=== PATIENT | female | born 1985 | race Caucasian/White ===

== ENCOUNTER 2018-05-14 00:15 | Emergency (ER) | payer OTHER ==
[2018-05-14] MEDS ORDERED: SODIUM CHLORIDE 0.9% 1,000 ML IV STA (01:12)
[2018-05-14] MEDS ORDERED: METOCLOPRAMIDE 5 MG/ML 2 ML VIAL IVP STA (01:12)
[2018-05-14] MEDS ORDERED: diphenhydrAMINE 50 MG/ML 1 ML VIAL IVP STA (01:12)
[2018-05-14] MEDS ORDERED: DEXTROSE 5% IN WATER 1,000 ML IV SCH (01:15)
[2018-05-14 01:28] LABS: Basophils % (A) 0 %; Eosinophils # (A) 0.1 k/uL (0-0.7); Eosinophils % (A) 1 %; HCT 41.6 % (34.0-46.0); HGB 14.2 gm/dL (11.4-16.0); Lymphocytes # (A) 0.9 k/uL (1.0-4.8); Lymphocytes % (A) 11 %; MCH 31.6 pg (25.0-35.0); MCHC 34.2 g/dL (31.0-37.0); MCV 92.3 fL (80.0-100.0); Mean Platelet Volume 7.4; Monocytes # (A) 0.5 k/uL (0-1.0); Monocytes % (A) 6 %; Neutrophils # (A) 7.1 k/uL (1.3-7.7); Neutrophils % (A) 82 %; Platelet Count 192 k/uL (150-450); RBC 4.51 m/uL (3.80-5.40); RDW 13.7 % (11.5-15.5); WBC 8.6 k/uL (3.8-10.6)
[2018-05-14 01:38] LABS: ALT 24 U/L (9-52); AST 25 U/L (14-36); Albumin 4.4 g/dL (3.5-5.0); Alkaline Phosphatase 71 U/L (38-126); Amylase 68 U/L (30-110); Anion Gap 12 mmol/L; Blood Urea Nitrogen 7 mg/dL (7-17); Calcium 9.2 mg/dL (8.4-10.2); Carbon Dioxide 19 mmol/L (22-30); Chloride 106 mmol/L (98-107); Glucose 86 mg/dL (74-99); Lipase 122 U/L (23-300); Potassium 3.8 mmol/L (3.5-5.1); Sodium 137 mmol/L (137-145); Total Bilirubin 0.9 mg/dL (0.2-1.3)
[2018-05-14 01:53] LABS: Appearance,Urine Cloudy (Clear); Bacteria,Urine Moderate /hpf; Bilirubin,Urine Negative (Negative); Blood,Urine Negative (Negative); Color,Urine Yellow; Glucose,Urine (UA) Negative (Negative); Ketones,Urine 4+ (Negative); Leukocyte Esterase,Urine Large (Negative); Mucus,Urine Few /hpf; Nitrite,Urine Negative (Negative); PH, Urine 6.5 (5.0-8.0); Protein,Urine 1+ (Negative); RBC,Urine 2 /hpf (0-5); Specific Gravity,Urine 1.026 (1.001-1.035); Squamous Epithelial Cell,Urine 19 /hpf (0-4); WBC,Urine 35 /hpf (0-5)
[2018-05-14] MEDS ORDERED: CEPHALEXIN 500MG STARTER PACK 4 CAP BTL PO STA (02:44)
[2018-05-14 02:49] VITALS: TEMP 98.5
--- NOTE | 2018-05-14 03:03 | ED ---
General Adult HPI - General Chief complaint: Nausea/Vomiting/Diarrhea Stated complaint: Vomiting, 24 weeks Time Seen by Provider: 05/14/18 00:51 Source: patient Mode of arrival: ambulatory Limitations: no limitations - History of Present Illness Initial comments: 32-year-old female patient who is approximately 24 weeks presents to the emergency department today for evaluation of vomiting and diarrhea. Patient states she has had symptoms for the last 24 hours after arriving home from a vacation in [place]. Patient states that she has had multiple episodes of vomiting and diarrhea. Patient states she is unable to keep down any food or fluid. Patient states she is starting to feel weak and dizzy from this and is reporting mild headache. She denies any fevers or chills. Denies any abdominal pain or cramping. Denies any abnormal vaginal bleeding or discharge. Patient says she has been feeling normal movement. She denies any hematemesis, hematochezia, or melena. Denies any recent antibiotic use. States that her daughter was sick with similar symptoms. Patient denies any recent rash, shortness breath, chest pain, back pain, numbness, tingling, hematuria, dysuria, urinary urgency, urinary frequency, visual changes, or any other complaints. - Related Data Previous Rx's Medication Instructions Recorded Cephalexin [Keflex] 500 mg PO Q6H #20 cap 05/14/18 Allergies Allergy/AdvReac Type Severity Reaction Status Date / Time No Known Allergies Allergy Verified 05/14/18 00:26 Review of Systems ROS Statement: Those systems with pertinent positive or pertinent negative responses have been documented in the HPI. ROS Other: All systems not noted in ROS Statement are negative. Past Medical History Past Medical History: No Reported History History of Any Multi-Drug Resistant Organisms: None Reported Past Surgical History: No Surgical Hx Reported Past Psychological History: No Psychological Hx Reported Smoking Status: Never smoker Past Alcohol Use History: None Reported Past Drug Use History: None Reported General Exam Limitations: no limitations General appearance: alert, in no apparent distress, other (This is a well- developed, well-nourished adult female patient in no acute distress. Vital signs upon presentation are temperature 98.2F, pulse 81, respirations 16, blood pressure 103/67, pulse ox 99% on room air.) Eye exam: Present: normal appearance, PERRL, EOMI. Absent: scleral icterus, conjunctival injection, periorbital swelling ENT exam: Present: normal exam, normal oropharynx, mucous membranes moist Respiratory exam: Present: normal lung sounds bilaterally. Absent: respiratory distress, wheezes, rales, rhonchi, stridor Cardiovascular Exam: Present: regular rate, normal rhythm, normal heart sounds. Absent: systolic murmur, diastolic murmur, rubs, gallop, clicks GI/Abdominal exam: Present: soft, normal bowel sounds, other (Gravid abdomen). Absent: distended, tenderness, guarding, rebound, rigid Back exam: Absent: CVA tenderness (R), CVA tenderness (L) Neurological exam: Present: alert, oriented X3, CN II-XII intact Psychiatric exam: Present: normal affect, normal mood Skin exam: Present: warm, dry, intact, normal color. Absent: rash Course Vital Signs 05/14/18 05/14/18 05/14/18 00:23 02:48 03:32 Temperature 98.2 F 98.5 F Pulse Rate 81 78 99 Respiratory 16 18 17 Rate Blood Pressure 103/67 112/58 110/58 O2 Sat by Pulse 99 99 100 Oximetry Medical Decision Making - Medical Decision Making 32-year-old female patient who is 24 weeks presents to the emergency department today for evaluation of vomiting and diarrhea. Physical examination is relatively unremarkable, she has no abdominal tenderness. She is reporting no abdominal pain or cramping. heart tones were 135-150. Patient is reporting movement. Labs reviewed and are unremarkable. Urinalysis did show cloudy appearance with 1+ protein, 4+ ketones, large leukocyte esterase, 35 white blood cells, 19 squamous epithelial cells, moderate bacteria and few mucus. We did send this for culture however given her we will treat with Keflex. Patient was given IV fluids including normal saline and D5W, she does report feeling much better after infusion of fluids and nausea medication. She'll be discharged home at this time to follow-up with her [facility] for recheck as soon as possible. She is instructed to start with clear liquid diet and advance as tolerated. Return parameters are discussed in detail. She verbalizes understanding and agrees with this plan. - Lab Data Result diagrams: 05/14/18 00:55 05/14/18 00:55 Lab Results 12/18/18 12/18/18 12/18/18 Range/Units 00:55 00:55 00:55 WBC 8.6 (3.8-10.6) k/uL RBC 4.51 (3.80-5.40) m/uL Hgb 14.2 (11.4-16.0) gm/dL Hct 41.6 (34.0-46.0) % MCV 92.3 (80.0-100.0) fL MCH 31.6 (25.0-35.0) pg MCHC 34.2 (31.0-37.0) g/dL RDW 13.7 (11.5-15.5) % Plt Count 192 (150-450) k/uL Neutrophils % 82 % Lymphocytes % 11 % Monocytes % 6 % Eosinophils % 1 % Basophils % 0 % Neutrophils # 7.1 (1.3-7.7) k/uL Lymphocytes # 0.9 L (1.0-4.8) k/uL Monocytes # 0.5 (0-1.0) k/uL Eosinophils # 0.1 (0-0.7) k/uL Basophils # 0.0 (0-0.2) k/uL Sodium 137 (137-145) mmol/L Potassium 3.8 (3.5-5.1) mmol/L Chloride 106 (98-107) mmol/L Carbon Dioxide 19 L (22-30) mmol/L Anion Gap 12 mmol/L BUN 7 (7-17) mg/dL Creatinine 0.55 (0.52-1.04) mg/dL Est GFR (CKD-EPI)AfAm >90 (>60 ml/min/1.73 sqM) Est GFR (CKD-EPI)NonAf >90 (>60 ml/min/1.73 sqM) Glucose 86 (74-99) mg/dL Calcium 9.2 (8.4-10.2) mg/dL Total Bilirubin 0.9 (0.2-1.3) mg/dL AST 25 (14-36) U/L ALT 24 (9-52) U/L Alkaline Phosphatase 71 (38-126) U/L Total Protein 8.0 (6.3-8.2) g/dL Albumin 4.4 (3.5-5.0) g/dL Amylase 68 (30-110) U/L Lipase 122 (23-300) U/L Urine Color Yellow Urine Appearance Cloudy H (Clear) Urine pH 6.5 (5.0-8.0) Ur Specific [place] 1.026 (1.001-1.035) Urine Protein 1+ H (Negative) Urine Glucose (UA) Negative (Negative) Urine Ketones 4+ H (Negative) Urine Blood Negative (Negative) Urine Nitrite Negative (Negative) Urine Bilirubin Negative (Negative) Urine Urobilinogen 4.0 (<2.0) mg/dL Ur Leukocyte Esterase Large H (Negative) Urine RBC 2 (0-5) /hpf Urine WBC 35 H (0-5) /hpf Ur Squamous Epith Cells 19 H (0-4) /hpf Urine Bacteria Moderate H (None) /hpf Urine Mucus Few H (None) /hpf Disposition Clinical Impression: Gastroenteritis Disposition: HOME SELF-CARE Condition: Good Instructions: Gastroenteritis (ED) Additional Instructions: Increase fluids. Start with clear liquid diet and advance as tolerated. Follow -up with your [facility] in your primary care physician for recheck as soon as possible. Return immediately for any new, worsening, or concerning symptoms. Prescriptions: Cephalexin [Keflex] 500 mg PO Q6H #20 cap Is patient prescribed a controlled substance at d/c from ED?: No Referrals: None,Stated [Primary Care Provider] - 1-2 days
[2018-05-14 03:33] VITALS: BP 110/58; PULSE 99; RESP 17
== END 2018-05-14 03:40 | disposition home or self-care (01) ==
LOC: MERGE 00:15 → EC 00:15
DX: O99.612 Diseases of the digestive system complicating pregnancy, second trimester (principal); O99.89 Other specified diseases and conditions complicating pregnancy, childbirth and the puerperium; K52.9 Noninfective gastroenteritis and colitis, unspecified; R51 Headache; R42 Dizziness and giddiness; Z3A.24 24 weeks gestation of pregnancy
CPT/HCPCS: 36415; 80053; 82150; 83690; 85025; 81001; 87086; 99284; 96374; 96375; 96361 ×2; J1200; J2765

== ENCOUNTER 2018-08-09 10:07 | Inpatient (IN) | payer MEDICAID, OTHER ==
[2018-08-09] MEDS ORDERED: TERBUTALINE 1 MG/ML VIAL SQ PRN (11:38)
[2018-08-09] MEDS ORDERED: ceFAZolin IN SWFI 2 GM/20 ML SYRINGE IVP ONE (13:44)
[2018-08-09] MEDS ORDERED: CITRIC ACID-SODIUM CITRATE 15 ML CUP PO ONE (13:44)
--- NOTE | 2018-08-09 13:56 | P.HPOB ---
History of Present Illness H&P Date: 08/09/18 Chief Complaint: IUP 36 3/7 weeks, labor h/o VAVD desires LTCS This is a 33 yo at 36 3/7 weeks that presents with regular string contractions, she was intially checked and 2cm, and progressed to 4 with a BBOW. she desires LTCS given she had a VAVD, 3rd degree laceration. she had an extensive recovery period due to this. she has been receiving routine PNC with myself since the first trimester. blood work, blood type of B pos, rubella immune, RPR NR, HBSag neg, HIV neg, normal GTT, Tdap given 07/05/18, GBS neg. Review of Systems Constitutional: Denies chills, Denies fatigue, Denies fever Ears, nose, mouth and throat: Denies headache Cardiovascular: Reports leg edema Respiratory: Denies cough, Denies dyspnea Gastrointestinal: Denies constipation, Denies diarrhea, Denies nausea, Denies vomiting Genitourinary: Reports Past Medical History Past Medical History: No Reported History History of Any Multi-Drug Resistant Organisms: None Reported Past Surgical History: No Surgical Hx Reported Smoking Status: Never smoker Medications and Allergies Home Medications Medication Instructions Recorded Confirmed Type Cephalexin [Keflex] 500 mg PO Q6H #20 cap 05/14/18 Rx Allergies Allergy/AdvReac Type Severity Reaction Status Date / Time No Known Allergies Allergy Verified 05/15/18 11:47 Exam Osteopathic Statement: *. No significant issues noted on an osteopathic structural exam other than those noted in the History and Physical/Consult. Intake and Output 08/08/18 08/09/18 08/09/18 22:59 06:59 14:59 Other: Weight 66.678 kg targeted physical exam done in general this pt is a well nourished well developed female in NAD, breathing is noted to be non labored, heart has a regular rhythm, abdomen is gravid and appropriate for GA, FHTS are reactive cat 1, ctx, q 2 mins, SVE 4/70/-2 BBOW Assessment and Plan (1) 36 weeks gestation of Current Visit: Yes Status: Acute Code(s): Z3A.36 - 36 WEEKS GESTATION OF SNOMED Code(s): 98064926 (2) Active labor Current Visit: Yes Status: Acute Code(s): [id number] - SNOMED Code(s): 50721212 (3) H/O delivery by vacuum extraction, currently Current Visit: Yes Status: Acute Code(s): O09.299 - SUPRVSN OF PREG W POOR REPRODCTV OR OBSTET HISTORY, UNSP TRI SNOMED Code(s): 183365824 (4) History of maternal third degree perineal laceration, currently Current Visit: Yes Status: Acute Code(s): O09.299 - SUPRVSN OF PREG W POOR REPRODCTV OR OBSTET HISTORY, UNS TRI SNOMED Code(s): 932490393 Plan: Patient desires LTCS given her last VAVD, with 3 degree perineal laceration. surgery reviewed with pt and . surgery reviewed with pt, and all questions answered. will proceed.
[2018-08-09] MEDS ORDERED: IBUPROFEN IV 800 MG in SODIUM CHLORIDE 0.9% 250 ML IV ONE (13:59)
[2018-08-09] MEDS ORDERED: DEXAMETHASONE SOD PHOS (MDV) 100 MG/10 ML VIAL ONE (14:16)
[2018-08-09] MEDS ORDERED: ONDANSETRON 4 MG/2 ML VIAL ONE (14:16)
[2018-08-09] MEDS ORDERED: NALBUPHINE 10 MG/ML (1 ML AMP) ONE (14:16)
[2018-08-09] MEDS ORDERED: PHENYLEPHRINE-0.9% NACL SYG 1 MG/10 ML SYRINGE ONE (14:16)
[2018-08-09] MEDS ORDERED: OXYTOCIN 10 UNIT/ML 1 ML VIAL ONE (14:16)
[2018-08-09] MEDS ORDERED: MORPHINE SULFATE (PF) 0.3 MG/0.3 ML SYR ONE (14:16)
[2018-08-09 14:22] LABS: Basophils % (A) 0 %; Eosinophils % (A) 0 %; HCT 40.5 % (34.0-46.0); HGB 13.1 gm/dL (11.4-16.0); Lymphocytes # (A) 1.9 k/uL (1.0-4.8); Lymphocytes % (A) 17 %; MCH 28.8 pg (25.0-35.0); MCHC 32.4 g/dL (31.0-37.0); Mean Platelet Volume 7.9; Monocytes # (A) 0.5 k/uL (0-1.0); Monocytes % (A) 4 %; Neutrophils % (A) 77 %; Platelet Count 218 k/uL (150-450); RBC 4.55 m/uL (3.80-5.40); RDW 12.9 % (11.5-15.5); WBC 11.6 k/uL (3.8-10.6)
[2018-08-09] MEDS ORDERED: diphenhydrAMINE 50 MG/ML 1 ML VIAL IVP PRN ×3 (14:41→14:51)
[2018-08-09] MEDS ORDERED: MORPHINE SULFATE 2 MG/ML SYRINGE IVP PRN (14:41)
[2018-08-09] MEDS ORDERED: ONDANSETRON 4 MG/2 ML VIAL IVP PRN ×2 (14:41→14:51)
[2018-08-09] MEDS ORDERED: NALOXONE 0.4 MG/ML 1 ML VIAL IV PRN ×2 (14:41→14:51)
[2018-08-09] MEDS ORDERED: METOCLOPRAMIDE 5 MG/ML 2 ML VIAL IVP PRN (14:51)
[2018-08-09] MEDS ORDERED: diphenhydrAMINE 50 MG CAP PO PRN (14:51)
[2018-08-09] MEDS ORDERED: ZOLPIDEM 5 MG TAB PO PRN (14:51)
[2018-08-09] MEDS ORDERED: OXYTOCIN 20 UNITS/1000 ML NS 1,000 ML IV SCH (14:51)
[2018-08-09 14:58] VITALS: BMI 24.4
--- NOTE | 2018-08-09 15:03 | P.OP ---
Date of Procedure: 08/09/18 Preoperative Diagnosis: IUP @ 36 3/7 weeks, h/o VAVD and 3rd degree laceration desires LTCS Postoperative Diagnosis: same Procedure(s) Performed: primary LTCS Anesthesia: spinal Surgeon: Chrystal Adams Strand Forming Machine Operator #1: Samina Rockwell Estimated Blood Loss (ml): 650 IV fluids (ml): 1,000 Urine output (ml): 25 Pathology: other (placenta) Condition: stable Disposition: PACU Indications for Procedure: h/o VAVD, 3rd degree laceration. Operative Findings: Normal uterus tubes and ovaries, weight 7 lbs. 9 oz. with Apgars of 9 and 9 at one and 5 minutes respectively and a time of 1437 Description of Procedure: The patient was prepped and draped in the usual fashion after spinal anesthesia was administered by anesthesia. A Pfannenstiel incision was made and extended of the abdominal cavity without difficulty. The bladder peritoneum was elevated and incised and reflected distally. A 2 cm incision was made in the transverse plane of the lower uterine segment to enter the uterus at which time clear fluid was noted. The incision was extended in both directions bluntly. The head was encountered within the field and delivered up and through the incision where the nose and mouth were thoroughly suctioned. Remainder of the was delivered onto the surgical field where the cord was doubly clamped, cut, and the was passed for resuscitative measures with weight and Apgars as noted above. A segment of cord was then doubly clamped, cut, and set aside should cord gases become necessary. The placenta was delivered manually, intact, and was grossly normal with a grossly normal three-vessel cord. The uterus was exteriorized and the interior cavity of the uterus swept of any remaining placental and membranous fragments with a laparotomy sponge. The margins of the incision were grasped with Allis clamps and the incision closed in 2 layers. First layer was a running locking layer of 0 vicryl from margin to margin followed by a second layer of imbricating 0 vicryl from margin to margin. Any small points of bleeding were then made hemostatic with the Bovie. Once hemostasis was achieved, the posterior cul-de-sac was suctioned with a guard and the uterine and ovarian findings are as noted above. The uterus was replaced within the abdominal cavity and the gutters swept of any remaining blood fluid or clot. The incision was again reexamined and hemostasis was noted to be excellent. Any small point of bleeding were made hemostatic with the Bovie. Once hemostasis was achieved the parietal peritoneum was loosely reapproximated. The layer of muscles were examined and made hemostatic with the Bovie. Attention was then turned to the fascia which was closed with 2 running stitches of 0 Vicryl proceeding from the lateral margins to the midpoint. The subcutaneous tissues were irrigated, made hemostatic with the Bovie. The skin was reapproximated with 4-0. Estimated blood loss for the case was approximately 650 mL. All sponge instrument and needle counts are correct. There were no complications. The patient tolerated the procedure well and proceeded to the recovery room in stable condition. Both mother and infant are resting comfortably in recovery.
[2018-08-09] MEDS ORDERED: ACETAMINOPHEN IV (For NPO) 1,000 MG in EMPTY BAG 1 BAG IVPB ONE (15:30)
[2018-08-09] MEDS: LACTATED RINGERS 1,000 ML IV SCH ×2 (20:34→22:54)
[2018-08-09] MEDS: SENNOSIDES-DOCUSATE SODIUM 1 EACH TAB PO SCH (20:35)
[2018-08-10] MEDS: diphenhydrAMINE 25 MG CAP PO PRN ×3 (00:32→08:20)
[2018-08-10] MEDS: IBUPROFEN 600 MG TAB PO PRN ×4 (05:13→22:42)
[2018-08-10 06:46] LABS: Basophils % (A) 0 %; Eosinophils % (A) 0 %; HGB 10.8 gm/dL (11.4-16.0); Lymphocytes # (A) 2.3 k/uL (1.0-4.8); Lymphocytes % (A) 16 %; MCH 29.3 pg (25.0-35.0); MCHC 32.6 g/dL (31.0-37.0); MCV 89.8 fL (80.0-100.0); Mean Platelet Volume 9.2; Monocytes # (A) 0.8 k/uL (0-1.0); Monocytes % (A) 6 %; Neutrophils % (A) 76 %; Platelet Count 170 k/uL (150-450); RBC 3.68 m/uL (3.80-5.40); RDW 12.8 % (11.5-15.5); WBC 14.5 k/uL (3.8-10.6)
[2018-08-10] MEDS: ACETAMINOPHEN TAB 325 MG TAB PO PRN ×2 (08:02→12:30)
[2018-08-10] MEDS: SENNOSIDES-DOCUSATE SODIUM 1 EACH TAB PO SCH ×2 (08:02→19:35)
[2018-08-10 09:08] VITALS: RESP 14
--- NOTE | 2018-08-10 09:16 | P.PN ---
Progress Note - Text Progress Note Date: 08/10/18 33 yo female status post . Post-op day #1. Patient received intrathecal Duramorph. Patient was seen today, sitting up in bed no complaints, pain VAS score 0/10, no headache, mild itching responding well to Benadryl, no nausea and vomiting. Assessment and plan: Doing well in general no complications from anesthesia.
--- NOTE | 2018-08-10 11:36 | P.PNOBGPC ---
Subjective - Subjective Principal diagnosis: Postop day 1 Interval history: Patient tearful and upset this morning regarding circumcision. Please see pediatric operative note. Patient reports: Reports appetite normal, Reports voiding normally, Reports pain well controlled, Reports ambulating normally, Denies nauseated : doing well, nursing well Objective - Vital Signs Latest vital signs: Vital Signs Temp Pulse Resp BP Pulse Ox 08/10/18 08:00 97.3 F L 64 14 104/68 08/10/18 05:14 16 08/10/18 04:00 98.1 F 77 14 102/63 99 08/10/18 01:33 16 08/09/18 23:32 97.4 F L 68 14 119/70 99 08/09/18 22:00 16 08/09/18 20:00 98.6 F 62 16 122/79 99 08/09/18 17:47 97 08/09/18 17:41 16 08/09/18 17:40 97.9 F 79 16 100/50 08/09/18 17:10 97.4 F L 74 16 101/58 08/09/18 16:40 97.2 F L 61 16 113/64 08/09/18 16:25 65 16 101/59 08/09/18 16:10 98.1 F 58 L 16 103/56 08/09/18 16:00 65 16 102/55 08/09/18 15:55 81 16 107/59 08/09/18 15:41 97.3 F L 78 16 99/54 99 08/09/18 15:40 98.7 F 89 16 123/52 08/09/18 14:41 16 98 08/09/18 14:07 98.3 F 89 16 123/62 Intake and Output 08/09/18 08/10/18 08/10/18 22:59 06:59 14:59 Intake Total 250 Output Total 1400 500 Balance -1150 -500 Intake: Oral 250 Output: Urine 1400 500 Uretheral ([place]) 1400 Other: # Voids 1 2 - Exam Extremities: Present: normal. Absent: edema Abdomen: Present: normal appearance, soft. Absent: tenderness Incision: Present: normal, dry, intact. Absent: erythematous, edematous Uterus: Present: normal, firm. Absent: tenderness - Labs Labs: Abnormal Lab Results - Last 24 Hours (Table) 08/09/18 08/10/18 Range/Units 14:00 06:32 WBC 11.6 H 14.5 H (3.8-10.6) k/uL RBC 3.68 L (3.80-5.40) m/uL Hgb 10.8 L (11.4-16.0) gm/dL Hct 33.0 L (34.0-46.0) % Neutrophils # 9.0 H 11.0 H (1.3-7.7) k/uL Assessment and Plan (1) 36 weeks gestation of Current Visit: Yes Status: Acute Code(s): Z3A.36 - 36 WEEKS GESTATION OF SNOMED Code(s): 42014834 (2) Active labor Current Visit: Yes Status: Acute Code(s): [id number] - SNOMED Code(s): 20781084 (3) H/O delivery by vacuum extraction, currently Current Visit: Yes Status: Acute Code(s): O09.299 - SUPRVSN OF PREG W POOR REPRODCTV OR OBSTET HISTORY, UNSP TRI SNOMED Code(s): 067339200 (4) History of maternal third degree perineal laceration, currently Current Visit: Yes Status: Acute Code(s): O09.299 - SUPRVSN OF PREG W POOR REPRODCTV OR OBSTET HISTORY, UNSP TRI SNOMED Code(s): 220446720 (5) S/P section Current Visit: Yes Status: Acute Code(s): Z98.891 - HISTORY OF UTERINE SCAR FROM PREVIOUS SURGERY SNOMED Code(s): 028245204 Plan: Postop day 1 status post primary low transverse section. Recovering well. Routine care.
[2018-08-10] MEDS: HYDROcodone/APAP 5-325MG 1 EACH TAB PO PRN ×2 (19:35→23:35)
[2018-08-11] MEDS: HYDROcodone/APAP 5-325MG 1 EACH TAB PO PRN ×2 (03:26→07:53)
[2018-08-11] MEDS: IBUPROFEN 600 MG TAB PO PRN ×2 (04:55→11:24)
[2018-08-11] MEDS: SENNOSIDES-DOCUSATE SODIUM 1 EACH TAB PO SCH (07:53)
[2018-08-11 09:32] VITALS: BP 136/74; PULSE 83; TEMP 98.5
--- NOTE | 2018-08-11 11:04 | P.DS ---
Providers Date of admission: 08/09/18 13:34 Expected date of discharge: 08/11/18 Attending physician: Chrystal Adams Primary care physician: Stated None - Discharge Diagnosis(es) (1) 36 weeks gestation of Current Visit: Yes Status: Acute (2) Active labor Current Visit: Yes Status: Acute (3) H/O delivery by vacuum extraction, currently Current Visit: Yes Status: Acute (4) History of maternal third degree perineal laceration, currently Current Visit: Yes Status: Acute (5) S/P section Current Visit: Yes Status: Acute Hospital Course: This is a 33-year-old 2 now para 2 woman who was admitted at 36+ weeks gestation for active labor. She had a history of a previous third degree perineal laceration and elected for primary section with this delivery. Please see the history and physical for complete details. Following admission she went to the operating room where she underwent an uncomplicated primary low transverse section. Findings at the time of surgery were significant for a liveborn male infant weighing 7 lbs. 9 oz. with Apgars of 9 at 1 minute and 9 at 5 minutes. Her postoperative course was unremarkable. By postoperative day #1 she was ambulating and voiding without difficulty. Her incision was well healing. She had decreasing lochia and her vital signs were stable. By postoperative day #2 she continued to do well on an was meeting all parameters. She was therefore discharged home with routine instructions for postoperative care and follow-up. Procedures: Primary low transverse section Patient Condition at Discharge: Good Plan - Discharge Summary New Discharge Prescriptions: New Ibuprofen [Motrin] 600 mg PO Q6HR PRN tab PRN Reason: Mild Pain Or Fever >= 100.5 HYDROcodone/APAP 5-325MG [[place] 5-325] 1 each PO Q4HR PRN #20 tab PRN Reason: Pain Sennosides-Docusate Sodium [Senokot-S] 2 each PO BID@0800,2000 tab Discontinued Cephalexin [Keflex] 500 mg PO Q6H #20 cap Discharge Medication List HYDROcodone/APAP 5-325MG [[place] 5-325] 1 each PO Q4HR PRN #20 tab 08/11/18 [Rx] Ibuprofen [Motrin] 600 mg PO Q6HR PRN tab 08/11/18 [Rx] Sennosides-Docusate Sodium [Senokot-S] 2 each PO BID@0800,1999 tab 08/11/18 [Rx] Follow up Appointment(s)/Referral(s): Chrystal Adams DO [Doctor of Osteopathic Medicine] - 2 Weeks Activity/Diet/Wound Care/Special Instructions: Follow-up in 2 weeks after surgery in the office. Call the office with any concerning signs or symptoms including fever greater than 101, severe abdominal pain, heavy vaginal bleeding, signs of wound infection, increased swelling or redness of the lower extremities, signs of depression. No driving for 2 weeks after surgery. No heavy lifting or vigorous activity until reevaluated in the office. No intercourse for 6 weeks after delivery. Discharge Disposition: HOME SELF-CARE
== END 2018-08-11 12:06 | disposition home or self-care (01) | DRG 788 ==
LOC: FBPOP 10:07 → 4FBP 13:34
PROVIDERS: ADMIT Obstetrics & Gynecology Obstetrics; ATTEND Obstetrics & Gynecology Obstetrics
PROC: 10D00Z1 Extraction of Products of Conception, Low, Open Approach (ICD-10-PCS; principal; 2018-08-09 14:22)
DX: O60.14X0 Preterm labor third trimester with preterm delivery third trimester, not applicable or unspecified (principal); O09.293 Supervision of pregnancy with other poor reproductive or obstetric history, third trimester; Z87.59 Personal history of other complications of pregnancy, childbirth and the puerperium; Z37.0 Single live birth; Z3A.36 36 weeks gestation of pregnancy; Z98.891 History of uterine scar from previous surgery
CPT/HCPCS: 59025; 85025; 86850; 86900; 86901

== ENCOUNTER 2020-06-03 10:57 | Outpatient (CLI) | payer MEDICAID ==
[2020-06-03 11:51] LABS: Appearance,Urine Cloudy (Clear); Bacteria,Urine Moderate /hpf; Bilirubin,Urine Negative (Negative); Blood,Urine Negative (Negative); Color,Urine Colorless; Glucose,Urine (UA) Negative (Negative); Ketones,Urine Negative (Negative); Leukocyte Esterase,Urine Negative (Negative); Nitrite,Urine Negative (Negative); Protein,Urine Negative (Negative); RBC,Urine <1 /hpf (0-5); Specific Gravity,Urine 1.003 (1.001-1.035); Squamous Epithelial Cell,Urine 14 /hpf (0-4); Urobilinogen,Urine <2.0 mg/dL (<2.0); WBC,Urine 1 /hpf (0-5)
[2020-06-03 13:28] VITALS: BP 135/66; PULSE 100; RESP 18; TEMP 98.3
--- NOTE | 2020-07-23 15:04 | P.MSEPDOC ---
Presenting Problems - Arrival Data Date of Arrival on Unit: 06/03/20 Time of Arrival on Unit: 10:57 Mode of Transport: Ambulatory - Complaint OB-Reason for Admission/Chief Complaint: Pain Comment: pt present to triage for irregular contractions, pressure and tighening Medical History - Information : 3 Para: 2 Term: 1 : 1 Abortions: Spontaneous or Elective: 0 Number of Living Children: 2 - Gestational Age Gestational Age by AXEL (wks/days): 28 Weeks and 2 Days Review of Systems - Review of Systems Constitutional: No problems Breast: No problems ENT: No problems Cardiovascular: No problems Respiratory: No problems Gastrointestinal: No problems Genitourinary: No problems Musculoskeletal: No problems Neurological: No problems Skin: No problems Vital Signs - Temperature Temperature: 98.3 F Temperature Source: Temporal Artery Scan - Pulse Right Brachial Pulse Rate: 100 Pulse Assessment Method: Automatic Cuff - Respirations Respiratory Rate: 18 Oxygen Delivery Method: Room Air O2 Sat by Pulse Oximetry: 98 - Blood Pressure Right Arm Blood Pressure: 135/66 Blood Pressure Mean: 89 Medical Screen Scoring (Pre) - Cervical Exam Dilation: 0 cm = 0 Effacement: Exam Deferred Membranes: Intact - Uterine Contractions Frequency: > 5 minutes apart = 1 Intensity: N/A - Maternal Vital Signs Maternal Temperature: N/A Maternal Blood Pressure: N/A Maternal Respirations: N/A - Maternal Trauma Maternal Trauma: N/A - Assessment - Baby A Baseline FHR: 135 Heart Rate - NICHD Category: Category I (Normal) = 0 NST: Reactive Position: N/A - Total Score - Baby A Total Score - Baby A: 1 - Total Score - Baby B Total Score - Baby B: 1 - Total Score - Baby C Total Score - Baby C: 1 - Level of Risk - Baby A Level of Risk - Baby A: Low (0-5) - Level of Risk - Baby B Level of Risk - Baby B: Low (0-5) - Level of Risk - Baby C Level of Risk - Baby C: Low (0-5) Physician Notification (Pre) - Physician Notified Physician Notified Date: 06/03/20 Physician Notified Time: 12:37 New Order Received: Yes - Notification Comment Comment: UA and FFN were sent, came back negative, cervical exam closed /thick/high, orders to discharge pt home and increase oral fluids, she has next appt on 06-16-20 Disposition - Disposition OB Disposition: Triage, Discharge to home, Written follow up instructions reviewed Discharge Date: 06/03/20 Discharge Time: 12:50 I agree with the RN Medical Screening Exam: Yes Physician's MSE Comment: Patient was not seen or examined by myself Case reviewed; plan agreed upon as documented in EMR&OBIX.: Yes Diagnosis: FALSE LABOR BEFORE 37 COMPLETED WEEKS OF GEST, THIRD TRI
== END 2020-06-03 12:50 | disposition home or self-care (01) ==
LOC: FBPOP 10:57
PROVIDERS: ATTEND Obstetrics & Gynecology Obstetrics
DX: O47.03 False labor before 37 completed weeks of gestation, third trimester (principal); Z3A.28 28 weeks gestation of pregnancy
CPT/HCPCS: 59025; 81001; 82731; 99213

== ENCOUNTER 2020-07-09 10:09 | Outpatient (CLI) | payer MEDICAID, BC ==
[2020-07-09 10:53] VITALS: BP 133/67; PULSE 114; RESP 18; TEMP 96.8
--- NOTE | 2020-07-23 15:36 | P.MSEPDOC ---
Presenting Problems - Arrival Data Date of Arrival on Unit: 07/09/20 Time of Arrival on Unit: 10:09 Mode of Transport: Ambulatory - Complaint OB-Reason for Admission/Chief Complaint: Elevated Blood Pressure Medical History - Information : 4 Para: 2 Term: 1 : 1 Abortions: Spontaneous or Elective: 1 Number of Living Children: 2 - Gestational Age Gestational Age by AXEL (wks/days): 33 Weeks and 3 Days - History Complications: Prior Review of Systems - Review of Systems Constitutional: No problems Breast: No problems ENT: No problems Cardiovascular: No problems Respiratory: No problems Gastrointestinal: No problems Genitourinary: No problems Musculoskeletal: No problems Neurological: No problems Skin: No problems Vital Signs - Temperature Temperature: 96.8 F Temperature Source: Temporal Artery Scan - Pulse Pulse Oximetery Pulse Rate: 114 Pulse Assessment Method: Automatic Cuff - Respirations Respiratory Rate: 18 Oxygen Delivery Method: Room Air O2 Sat by Pulse Oximetry: 100 - Blood Pressure Right Arm Blood Pressure: 133/67 Blood Pressure Mean: 89 Blood Pressure Source: Automatic Cuff Medical Screen Scoring (Pre) - Cervical Exam Dilation: Exam Deferred Effacement: Exam Deferred Membranes: Intact - Uterine Contractions Frequency: N/A Duration: N/A Intensity: N/A - Maternal Vital Signs Maternal Temperature: N/A Maternal Blood Pressure: N/A Maternal Respirations: N/A - Maternal Trauma Maternal Trauma: N/A - Assessment - Baby A Baseline FHR: 145 Heart Rate - NICHD Category: Category I (Normal) = 0 NST: Reactive Position: N/A - Total Score - Baby A Total Score - Baby A: 0 - Total Score - Baby B Total Score - Baby B: 0 - Total Score - Baby C Total Score - Baby C: 0 - Level of Risk - Baby A Level of Risk - Baby A: Low (0-5) - Level of Risk - Baby B Level of Risk - Baby B: Low (0-5) - Level of Risk - Baby C Level of Risk - Baby C: Low (0-5) Physician Notification (Pre) - Physician Notified Physician Notified Date: 07/09/20 Physician Notified Time: 10:34 New Order Received: Yes - Notification Comment Comment: Dr. Edge on unit and at bedside. Discussed POC with pt and s/s of preeclampsia. Orders received to d/c pt home due to blood pressure WNL. Dr. Edge states baseline labs do not need to be drawn at this time. Pt to keep sched follow up appt with Dr. Adams 07/14/20. Disposition - Disposition OB Disposition: Discharge to home Discharge Date: 07/09/20 Discharge Time: 10:45 I agree with the RN Medical Screening Exam: Yes Physician's MSE Comment: Patient was not seen or examined by myself Case reviewed; plan agreed upon as documented in EMR&OBIX.: Yes Diagnosis: OTHER SPECIFIED COMPLICATIONS OF LABOR AND DELIVERY
== END 2020-07-09 10:45 | disposition home or self-care (01) ==
LOC: FBPOP 10:09
PROVIDERS: ATTEND Obstetrics & Gynecology Obstetrics
DX: O75.89 Other specified complications of labor and delivery (principal); Z3A.33 33 weeks gestation of pregnancy
CPT/HCPCS: 59025; 99213

== ENCOUNTER 2020-07-13 14:57 | Outpatient (CLI) | payer MEDICAID, BC ==
[2020-07-13] MEDS ORDERED: BETAMET ACET-BETAMETH SOD PHOS 6 MG/ML MDV IM SCH (15:30)
== END 2020-07-13 15:59 | disposition home or self-care (01) ==
LOC: FBPOP 14:57
PROVIDERS: ATTEND Obstetrics & Gynecology Obstetrics
DX: O60.03 Preterm labor without delivery, third trimester (principal); Z3A.34 34 weeks gestation of pregnancy
CPT/HCPCS: 59025; 96372; J0702; 99214

== ENCOUNTER 2020-07-14 22:40 | Outpatient (CLI) | payer BC ==
[2020-07-14 23:24] VITALS: BP 131/71; PULSE 101; RESP 16; TEMP 97.6
--- NOTE | 2020-07-15 01:10 | P.MSEPDOC ---
Presenting Problems - Arrival Data Date of Arrival on Unit: 07/14/20 Time of Arrival on Unit: 22:40 Mode of Transport: Ambulatory - Complaint OB-Reason for Admission/Chief Complaint: Decreased Movement Medical History - Information : 4 Para: 3 Term: 2 : 1 Abortions: Spontaneous or Elective: 0 Number of Living Children: 3 - Gestational Age Gestational Age by AXEL (wks/days): 34 Weeks and 1 Days Review of Systems - Review of Systems Constitutional: No problems Breast: No problems ENT: No problems Cardiovascular: No problems Respiratory: No problems Gastrointestinal: No problems Genitourinary: No problems Musculoskeletal: No problems Neurological: No problems Skin: No problems Vital Signs - Temperature Temperature: 97.6 F Temperature Source: Oral - Pulse Right Brachial Pulse Rate: 101 Pulse Assessment Method: Automatic Cuff - Respirations Respiratory Rate: 16 Oxygen Delivery Method: Room Air O2 Sat by Pulse Oximetry: 99 - Blood Pressure Right Arm Blood Pressure: 131/71 Blood Pressure Mean: 91 Blood Pressure Source: Automatic Cuff Medical Screen Scoring (Pre) - Cervical Exam Dilation: Exam Deferred Effacement: Exam Deferred Membranes: Intact - Uterine Contractions Frequency: N/A Duration: N/A Intensity: N/A - Maternal Vital Signs Maternal Temperature: N/A Maternal Blood Pressure: N/A Signs of Preeclampsia: N/A Maternal Respirations: N/A - Maternal Trauma Maternal Trauma: N/A - Assessment - Baby A Baseline FHR: 135 Heart Rate - NICHD Category: Category I (Normal) = 0 NST: Reactive Position: N/A Station: N/A - Total Score - Baby A Total Score - Baby A: 0 - Total Score - Baby B Total Score - Baby B: 0 - Total Score - Baby C Total Score - Baby C: 0 - Level of Risk - Baby A Level of Risk - Baby A: Low (0-5) - Level of Risk - Baby B Level of Risk - Baby B: Low (0-5) - Level of Risk - Baby C Level of Risk - Baby C: Low (0-5) Physician Notification (Pre) - Physician Notified Physician Notified Date: 07/14/20 Physician Notified Time: 23:08 New Order Received: Yes - Notification Comment Comment: Dr. Connor given report on pt. Pt c/o. VS WNL. Reactive NST. No contractions. noted per toco or pt. Orders receievd to d/c pt to home. Disposition - Disposition OB Disposition: Physician follow up in office, Discharge to home Discharge Date: 07/14/20 Discharge Time: 23:10 I agree with the RN Medical Screening Exam: Yes Case reviewed; plan agreed upon as documented in EMR&OBIX.: Yes Diagnosis: DECREASED MOVEMENTS, THIRD TRIMESTER, FETUS 1 Additional Diagnoses: Patient was neither seen nor examined by me
== END 2020-07-14 23:10 | disposition home or self-care (01) ==
LOC: FBPOP 22:40
PROVIDERS: ATTEND Obstetrics & Gynecology
DX: O36.8131 Decreased fetal movements, third trimester, fetus 1 (principal); Z3A.34 34 weeks gestation of pregnancy
CPT/HCPCS: 59025; 99213

== ENCOUNTER 2020-07-30 21:02 | Outpatient (CLI) | payer MEDICAID, BC ==
[2020-07-30] MEDS ORDERED: ONDANSETRON 4 MG/2 ML VIAL IVP STA (21:44)
[2020-07-30] MEDS ORDERED: LACTATED RINGERS 1,000 ML IV SCH (21:45)
[2020-07-30] MEDS: DEXTROSE 5%-LACTATED RINGERS 1,000 ML IV SCH ×3 (22:00→23:30)
[2020-07-30 22:02] LABS: Appearance,Urine Cloudy (Clear); Bacteria,Urine Occasional /hpf; Bilirubin,Urine Negative (Negative); Blood,Urine Negative (Negative); Color,Urine Yellow; Glucose,Urine (UA) Negative (Negative); Ketones,Urine 4+ (Negative); Leukocyte Esterase,Urine Small (Negative); Mucus,Urine Many /hpf; Nitrite,Urine Negative (Negative); Protein,Urine 2+ (Negative); RBC,Urine 6 /hpf (0-5); Specific Gravity,Urine 1.027 (1.001-1.035); Squamous Epithelial Cell,Urine 27 /hpf (0-4); WBC,Urine 6 /hpf (0-5)
[2020-07-30 22:55] LABS: Basophils % (A) 0 %; Eosinophils # (A) 0.1 k/uL (0-0.7); Eosinophils % (A) 1 %; HCT 42.5 % (34.0-46.0); HGB 13.8 gm/dL (11.4-16.0); Hypochromasia Slight; Lymphocytes # (A) 0.5 k/uL (1.0-4.8); Lymphocytes % (A) 4 %; MCH 28.7 pg (25.0-35.0); MCHC 32.5 g/dL (31.0-37.0); MCV 88.2 fL (80.0-100.0); Mean Platelet Volume 9.4; Monocytes # (A) 0.5 k/uL (0-1.0); Monocytes % (A) 4 %; Neutrophils # (A) 12.3 k/uL (1.3-7.7); Neutrophils % (A) 91 %; Platelet Count 153 k/uL (150-450); RBC 4.81 m/uL (3.80-5.40); RDW 13.9 % (11.5-15.5); WBC 13.5 k/uL (3.8-10.6)
[2020-07-30] MEDS ORDERED: METOCLOPRAMIDE 5 MG/ML 2 ML VIAL IVP STA (23:19)
[2020-07-30] MEDS: TERBUTALINE 1 MG/ML VIAL SQ STA (23:39)
[2020-07-31] MEDS: TERBUTALINE 1 MG/ML VIAL SQ STA (00:03)
[2020-07-31] MEDS: DEXTROSE 5%-LACTATED RINGERS 1,000 ML IV SCH (01:57)
[2020-07-31 03:47] VITALS: BP 146/67; PULSE 96; RESP 16; TEMP 96.3
--- NOTE | 2020-08-16 11:23 | P.MSEPDOC ---
Presenting Problems - Arrival Data Date of Arrival on Unit: 07/30/20 Time of Arrival on Unit: 21:02 Mode of Transport: Wheelchair - Complaint OB-Reason for Admission/Chief Complaint: Acute Nausea/Vomiting Comment: Comment: pt. present to triage due to N&V and diarrhea since 1800 today and. c/o lower back pain01/04, pt. states her children go to daycare and came home with the. flu on sunday and today. Medical History - Information : 3 Para: 2 Term: 2 : 0 Abortions: Spontaneous or Elective: 0 Number of Living Children: 2 - Gestational Age Gestational Age by AXEL (wks/days): 36 Weeks and 1 Days - History Complications: Prior Review of Systems - Review of Systems Constitutional: No problems Breast: No problems ENT: No problems Cardiovascular: No problems Respiratory: No problems Gastrointestinal: No problems Genitourinary: No problems Musculoskeletal: No problems Neurological: No problems Skin: No problems Vital Signs - Temperature Temperature: 96.3 F Temperature Source: Temporal Artery Scan - Pulse Right Brachial Pulse Rate: 96 Pulse Assessment Method: Automatic Cuff - Respirations Respiratory Rate: 16 Oxygen Delivery Method: Room Air O2 Sat by Pulse Oximetry: 100 - Blood Pressure Right Arm Blood Pressure: 146/67 Blood Pressure Mean: 93 Blood Pressure Source: Automatic Cuff Medical Screen Scoring (Pre) - Cervical Exam Dilation: 1-3 cm = 1 Effacement: More than 50% = 2 Membranes: Intact - Uterine Contractions Frequency: Scheduled / = 6 Intensity: N/A - Maternal Vital Signs Maternal Temperature: N/A Maternal Blood Pressure: Systolic >139 = 2 Signs of Preeclampsia: Nausea/Vomiting = 1 Maternal Respirations: N/A - Maternal Trauma Maternal Trauma: N/A - Assessment - Baby A Baseline FHR: 150 Heart Rate - NICHD Category: Category I (Normal) = 0 NST: Reactive - Total Score - Baby A Total Score - Baby A: 12 - Total Score - Baby B Total Score - Baby B: 12 - Total Score - Baby C Total Score - Baby C: 12 - Level of Risk - Baby A Level of Risk - Baby A: High (10+) - Level of Risk - Baby B Level of Risk - Baby B: High (10+) - Level of Risk - Baby C Level of Risk - Baby C: High (10+) - Pain Assessment Pain Location and Character: Back Pain Scale Used: Numeric (1 - 10) Pain Intensity: 8 Pain Management Goal: 2 Pain Description: *Acute, Cramping Pain Radiation Location: no Pain Frequency: Intermittent Pain Duration: 2 Pain Duration Units: Hours Pain Behavior: Vocalization Physician Notification (Pre) - Physician Notified Physician Notified Date: 07/31/20 Physician Notified Time: 03:28 New Order Received: Yes - Notification Comment Comment: Dr. Connor in to see pt at bedside, pt states feeling better and not as nauseous as when arriving to triage. Dr. Connor discussed bland diet and increase d fluids with pt. Pt to follow up as planned on 08/05/20. Disposition - Disposition OB Disposition: Physician follow up in office, Triage, Discharge to home, Written follow up instructions reviewed Discharge Date: 07/31/20 Discharge Time: 03:33 I agree with the RN Medical Screening Exam: Yes Case reviewed; plan agreed upon as documented in EMR&OBIX.: Yes Comments: patient was neither seen nor examined by me. Diagnosis: LATE VOMITING OF
== END 2020-07-31 03:30 | disposition home or self-care (01) ==
LOC: FBPOP 21:02
PROVIDERS: ATTEND Obstetrics & Gynecology
DX: O21.2 Late vomiting of pregnancy (principal); Z3A.36 36 weeks gestation of pregnancy
CPT/HCPCS: 59025; 99214; 96361; 96374; 96375; 96372; 84112; 85025; 81001; J3105 ×2; J2765; J2405

== ENCOUNTER 2020-08-02 10:58 | Outpatient (CLI) | payer MEDICAID, BC ==
[2020-08-02] MEDS ORDERED: ONDANSETRON 4 MG/2 ML VIAL IVP STA (11:31)
[2020-08-02 12:11] LABS: African American GFR (CKD) >90 (>60 ml/min/1.73 sqM); Anion Gap 6 mmol/L; Blood Urea Nitrogen 6 mg/dL (7-17); Calcium 8.6 mg/dL (8.4-10.2); Carbon Dioxide 23 mmol/L (22-30); Chloride 109 mmol/L (98-107); Glucose 89 mg/dL (74-99); Non-African American GFR(CKD) >90 (>60 ml/min/1.73 sqM); Potassium 3.5 mmol/L (3.5-5.1); Sodium 138 mmol/L (137-145)
[2020-08-02] MEDS: LACTATED RINGERS 1,000 ML IV SCH ×2 (12:15→14:39)
[2020-08-02 12:28] LABS: Amorphous Sediment,Urine Rare /hpf; Appearance,Urine Turbid (Clear); Bacteria,Urine Moderate /hpf; Bilirubin,Urine 1+ (Negative); Blood,Urine Trace (Negative); Calcium Oxalate Crystals,Urine Few /hpf; Color,Urine Yellow; Glucose,Urine (UA) Negative (Negative); Ketones,Urine Negative (Negative); Leukocyte Esterase,Urine Moderate (Negative); Mucus,Urine Many /hpf; Nitrite,Urine Negative (Negative); Protein,Urine 1+ (Negative); RBC,Urine 9 /hpf (0-5); Specific Gravity,Urine 1.024 (1.001-1.035); Squamous Epithelial Cell,Urine 71 /hpf (0-4); Urobilinogen,Urine >12.0 mg/dL (<2.0); WBC,Urine 10 /hpf (0-5)
[2020-08-02 12:36] LABS: SARS-CoV-2 RNA Rapid Abbott Not Detected (Not Detectd)
[2020-08-02 15:39] VITALS: BP 134/71; PULSE 93; RESP 16; TEMP 97
--- NOTE | 2020-09-09 17:29 | P.MSEPDOC ---
Presenting Problems - Arrival Data Date of Arrival on Unit: 08/02/20 Time of Arrival on Unit: 12:00 Mode of Transport: Ambulatory - Complaint OB-Reason for Admission/Chief Complaint: Possible Onset of Labor, Observation/Evaluation, Other Comment: still not feeling well from flu. n/v Medical History - Information : 3 Para: 2 Term: 0 : 2 Number of Living Children: 2 - Gestational Age Gestational Age by AXEL (wks/days): 36 Weeks and 6 Days - History Complications: Prior , Other Comment: flu over weekend Review of Systems - Review of Systems Constitutional: No problems Breast: No problems ENT: No problems Cardiovascular: No problems Respiratory: No problems Gastrointestinal: Diarrhea Genitourinary: No problems Musculoskeletal: No problems Neurological: No problems Skin: No problems Vital Signs - Temperature Temperature: 97.0 F Temperature Source: Temporal Artery Scan - Pulse Right Radial Pulse Rate: 93 Pulse Assessment Method: Automatic Cuff - Respirations Respiratory Rate: 16 Oxygen Delivery Method: Room Air O2 Sat by Pulse Oximetry: 98 - Blood Pressure Right Arm Blood Pressure: 134/71 Blood Pressure Mean: 92 Blood Pressure Source: Automatic Cuff Medical Screen Scoring (Pre) - Cervical Exam Dilation: 1-3 cm = 1 Effacement: Exam Deferred Membranes: Intact - Uterine Contractions Frequency: > or = 36 weeks =2 Duration: N/A Intensity: N/A - Maternal Vital Signs Maternal Temperature: N/A Maternal Blood Pressure: N/A Signs of Preeclampsia: N/A Maternal Respirations: N/A - Maternal Trauma Maternal Trauma: N/A - Assessment - Baby A Baseline FHR: 130 Heart Rate - NICHD Category: Category I (Normal) = 0 NST: Reactive Position: N/A Station: N/A - Total Score - Baby A Total Score - Baby A: 3 - Total Score - Baby B Total Score - Baby B: 3 - Total Score - Baby C Total Score - Baby C: 3 - Level of Risk - Baby A Level of Risk - Baby A: Low (0-5) - Level of Risk - Baby B Level of Risk - Baby B: Low (0-5) - Level of Risk - Baby C Level of Risk - Baby C: Low (0-5) Physician Notification (Pre) - Physician Notified Physician Notified Date: 08/02/20 Physician Notified Time: 12:20 New Order Received: Yes - Notification Comment Comment: iv, lab work. covid and flu texting. monitoring and contx monitoring Disposition - Disposition OB Disposition: Discharge to home Discharge Date: 08/02/20 Discharge Time: 15:00 I agree with the RN Medical Screening Exam: Yes Physician's MSE Comment: Patient was not seen or examined by myself Case reviewed; plan agreed upon as documented in EMR&OBIX.: Yes Diagnosis: FALSE LABOR BEFORE 37 COMPLETED WEEKS OF GEST, THIRD TRI
== END 2020-08-02 15:00 | disposition home or self-care (01) ==
LOC: FBPOP 10:58
PROVIDERS: ATTEND Obstetrics & Gynecology Obstetrics
DX: O47.03 False labor before 37 completed weeks of gestation, third trimester (principal); Z3A.36 36 weeks gestation of pregnancy
CPT/HCPCS: 59025; 80048; 81001; 87502; 87635; 96360; 96361; 99214

== ENCOUNTER 2020-08-04 05:46 | Outpatient (CLI) | payer MEDICAID, BC ==
[2020-08-04 06:37] VITALS: BP 126/79; PULSE 86; RESP 16; TEMP 96.7
== END 2020-08-04 06:27 | disposition home or self-care (01) ==
LOC: FBPOP 05:46
PROVIDERS: ATTEND Obstetrics & Gynecology
DX: O26.893 Other specified pregnancy related conditions, third trimester (principal); Z3A.00 Weeks of gestation of pregnancy not specified
CPT/HCPCS: 59025; 99213

== ENCOUNTER 2020-08-04 06:00 | Inpatient (IN) | payer BC, MEDICAID ==
[2020-08-04] MEDS ORDERED: CITRIC ACID-SODIUM CITRATE 15 ML CUP PO ONE (12:02)
[2020-08-04] MEDS ORDERED: LACTATED RINGERS 1,000 ML IV ONE (12:30)
[2020-08-04 12:53] LABS: Basophils % (A) 0 %; Eosinophils # (A) 0.1 k/uL (0-0.7); Eosinophils % (A) 1 %; HGB 10.9 gm/dL (11.4-16.0); Lymphocytes # (A) 1.9 k/uL (1.0-4.8); Lymphocytes % (A) 30 %; MCH 28.4 pg (25.0-35.0); MCHC 32.8 g/dL (31.0-37.0); MCV 86.5 fL (80.0-100.0); Mean Platelet Volume 9.4; Monocytes # (A) 0.3 k/uL (0-1.0); Monocytes % (A) 4 %; Neutrophils % (A) 62 %; Platelet Count 160 k/uL (150-450); Poikilocytosis Slight; RBC 3.82 m/uL (3.80-5.40); RDW 14.7 % (11.5-15.5); WBC 6.4 k/uL (3.8-10.6)
[2020-08-04] MEDS: LACTATED RINGERS 1,000 ML IV SCH ×3 (13:39→20:43)
[2020-08-04] MEDS ORDERED: MORPHINE SULFATE (PF) 0.3 MG/0.3 ML SYR ONE (16:35)
[2020-08-04] MEDS ORDERED: ONDANSETRON 4 MG/2 ML VIAL ONE (16:35)
[2020-08-04] MEDS ORDERED: KETOROLAC 15 MG/ML 1 ML VIAL ONE (16:35)
[2020-08-04] MEDS ORDERED: OXYTOCIN 10 UNIT/ML 1 ML VIAL ONE (16:35)
[2020-08-04] MEDS ORDERED: CELLULOSE,OXIDIZED 1 EACH EACH MISCELLANE ONE (16:58)
[2020-08-04] MEDS ORDERED: METOCLOPRAMIDE 5 MG/ML 2 ML VIAL IVP PRN (17:24)
[2020-08-04] MEDS ORDERED: ZOLPIDEM 5 MG TAB PO PRN (17:24)
[2020-08-04] MEDS ORDERED: diphenhydrAMINE 50 MG/ML 1 ML VIAL IVP PRN ×2 (17:24)
[2020-08-04] MEDS ORDERED: NALOXONE 0.4 MG/ML 1 ML VIAL IV PRN (17:24)
[2020-08-04] MEDS ORDERED: diphenhydrAMINE 50 MG CAP PO PRN (17:24)
[2020-08-04] MEDS ORDERED: diphenhydrAMINE 25 MG CAP PO PRN (17:24)
[2020-08-04] MEDS ORDERED: ONDANSETRON 4 MG/2 ML VIAL IVP PRN (17:24)
[2020-08-04] MEDS ORDERED: OXYTOCIN 30 UNITS/500 ML NS 30 UNIT in SALINE 1 500ML.BAG IV SCH (17:30)
--- NOTE | 2020-08-04 17:32 | P.HPOB ---
History of Present Illness H&P Date: 08/04/20 Chief Complaint: IUP at 37 1/, labor, history of 1 desires repeat This is a 35-year-old at 37 and one sevenths weeks that presented to triage earlier today with complaints of decreased movement and contractions. Patient was discharged home and presented to the office. Patient was noted to have cervical change therefore was sent back to the hospital for planned repeat section secondary to labor. section will be delayed because she had breakfast this morning. Patient has noted good movement denied loss of fluid or vaginal bleeding. Patient has been receiving routine care which has been complicated by contractions. Patient has been struggling with regular painful contractions for the last 2 weeks with no cervical change. In the office today she was noted to be 2/50 soft anterior she was previously fingertip to 1 thick posterior firm. On bloodwork patient had a blood type of B+, rubella status immune, hep B surface antigen negative, HIV negative, group beta strep is noted to be positive. Patient did receive steroids at 34 weeks secondary to contractions. Review of Systems Constitutional: Denies chills, Denies fatigue, Denies fever Ears, nose, mouth and throat: Denies headache Cardiovascular: Reports leg edema Respiratory: Denies dyspnea Gastrointestinal: Denies nausea, Denies vomiting Genitourinary: Reports Past Medical History Past Medical History: No Reported History History of Any Multi-Drug Resistant Organisms: None Reported Past Surgical History: Section, Tonsillectomy Past Anesthesia/Blood Transfusion Reactions: No Reported Reaction Past Psychological History: No Psychological Hx Reported Smoking Status: Never smoker Past Alcohol Use History: None Reported Past Drug Use History: None Reported - Past Family History Father Family Medical History: No Reported History Mother History Unknown: Yes Additional Family Medical History / Comment(s): mom from [facility] in Jan Medications and Allergies Home Medications Medication Instructions Recorded Confirmed Type Pnv No.95/Ferrous Fum/Folic AC 1 each PO DAILY 06/03/20 08/04/20 History [ Multivitamin Tablet] Omeprazole [PriLOSEC] 10 mg PO DIRECTED PRN 07/09/20 08/04/20 History Nitrofurantoin Monohyd/M-Cryst 100 mg PO Q12HR 08/04/20 08/04/20 History [Macrobid] Allergies Allergy/AdvReac Type Severity Reaction Status Date / Time No Known Allergies Allergy Verified 08/04/20 11:39 Exam Osteopathic Statement: *. No significant issues noted on an osteopathic structural exam other than those noted in the History and Physical/Consult. Vital Signs Temp Pulse Resp BP Pulse Ox 08/04/20 12:06 97.4 F L 89 18 137/78 99 Intake and Output 08/04/20 08/04/20 08/04/20 06:59 14:59 22:59 Intake Total 1000 Balance 1000 Intake: IV 1000 Other: # Voids 2 Weight 70.76 kg Targeted physical exam is performed in this date in general this is a well- nourished well-developed female with obvious noted contractions. Pa tient is noted to be breathing through contractions. Breathing appears nonlabored, heart has a regular rate and rhythm, abdomen is gravid and firm with contractions. On cervical exam she is 2/50/-2 station heart tones were noted be category 1 and she is fuentes every 2-4 minutes. Results Result Diagrams: 08/04/20 12:18 Abnormal Lab Results - Last 24 Hours (Table) 08/04/20 Range/Units 12:18 Hgb 10.9 L (11.4-16.0) gm/dL Hct 33.0 L (34.0-46.0) % Assessment and Plan (1) 37 weeks gestation of Current Visit: Yes Status: Acute Code(s): Z3A.37 - 37 WEEKS GESTATION OF SNOMED Code(s): 06933403 (2) H/O section Current Visit: Yes Status: Acute Code(s): Z98.891 - HISTORY OF UTERINE SCAR FROM PREVIOUS SURGERY SNOMED Code(s): 375238129 (3) Active labor Current Visit: No Status: Acute Code(s): FGS7382 - SNOMED Code(s): 685597562 (4) H/O delivery by vacuum extraction, currently Current Visit: No Status: Acute Code(s): O09.299 - SUPRVSN OF PREG W POOR REPRODCTV OR OBSTET HISTORY, UNSP TRI SNOMED Code(s): 944217601 Plan: This 35-year-old at 37 and one sevenths weeks presents with complaints of labor. Patient has been fuentes off and on for the last few days. Patient was noted to make cervical change therefore given the fact that she is in most likely early labor decision was made to proceed with repeat section. Patient did eat breakfast and we will await the appropriate time to perform repeat . is discussed with the patient and her all questions are answered and they wished to proceed.
--- NOTE | 2020-08-04 17:36 | P.OP ---
Date of Procedure: 08/04/20 Preoperative Diagnosis: IUP at 37 and 1/sevenths weeks, labor, history of 1 desires repeat Postoperative Diagnosis: Same Procedure(s) Performed: Repeat section Anesthesia: spinal Surgeon: Chrystal Adams Pin Drafter #1: Alexi Edge Estimated Blood Loss (ml): 250 IV fluids (ml): 800 Urine output (ml): 100 Pathology: none sent Condition: stable Disposition: observation Indications for Procedure: Labor with history of 1 and desiring repeat Operative Findings: A thin lower uterine segment was appreciated, viable male infant delivered at 1658, weight of 7 lbs. 8 oz. and Apgars of 8 and 9 at one and 5 minutes respectively. Normal ovaries were appreciated bilaterally. At the end of the procedure Interceed was placed over the hysterotomy incision Description of Procedure: Patient was taken back to the operating suite where spinal anesthesia was found be adequate by the anesthesia department. She was prepped and draped in the normal sterile fashion in the dorsal supine position. A Pfannenstiel skin incision was made with the scalpel and carried through to underlying layer of fascia. The fascia was then incised in the midline and the incision was extended laterally. The superior aspect of the fascial incision was then grasped pancho clamps, elevated and underlying rectus muscle was dissected off sharply. The inferior aspect of the fascial incision was then grasped pancho clamps elevated and underlying rectus muscles dissected off sharply once again. The peritoneum was identified and entered. This incision was then extended superiorly and inferiorly with good visualization the bladder. The bladder blade was then inserted into the pelvis. The vesicouterine peritoneum was identified and a bladder flap was created using sharp and blunt dissection. Hysterotomy incision was then performed thin meconium-stained fluid was noted upon amniotomy. The infant's head was delivered in the usual fashion, the umbilical cord was doubly clamped and cut. The was handed off to awaiting RN. The placenta was then delivered manually and the uterus was cleared of all clots and debris. Uterus then delivered from the abdomen. The hysterotomy incision was closed with 0 Vicryl in a running locked fashion a second imbricating suture was performed. A small amount of bleeding was noted on the left-hand side of the uterus therefore a [id number] suture was used to obtain hemostasis. The pelvis was then irrigated copiously. The uterus was then returned the abdomen. The gutters were cleared of all clots and debris the uterine incision was inspected and found to be hemostatic. Interceed was placed over the hysterotomy incision the peritoneum was then loosely reapproximated. The fascia was then closed with 0 Vicryl in a running fashion from one lateral edge the other. The subcutaneous tissue was then irrigated and found to be hemostatic. The subcutaneous tissue was then closed with 3-0 Vicryl in a running fashion. The skin was then closed with 4-0 Vicryl in a subarticular fashion. Steri-Strips and sterile dressings were applied. Uterus is noted be firm and below the umbilicus. All counts were noted to be correct 2000 the procedure. Patient and infant tolerated delivery well and are resting comfortably.
[2020-08-04] MEDS: ACETAMINOPHEN IV (For NPO) 1,000 MG in EMPTY BAG 1 BAG IVPB SCH (18:22)
[2020-08-04] MEDS ORDERED: IBUPROFEN IV 800 MG in SODIUM CHLORIDE 0.9% 250 ML IV ONE (20:46)
[2020-08-04] MEDS ORDERED: IBUPROFEN 600 MG TAB PO SCH (23:27)
[2020-08-05] MEDS: NITROFURANTOIN MONOHYD/M-CRYST 100 MG CAP PO SCH ×3 (00:24→21:43)
[2020-08-05] MEDS: SENNOSIDES-DOCUSATE SODIUM 1 EACH TAB PO SCH ×3 (00:24→19:58)
[2020-08-05] MEDS: LACTATED RINGERS 1,000 ML IV SCH ×2 (00:26→13:48)
[2020-08-05] MEDS: ACETAMINOPHEN IV (For NPO) 1,000 MG in EMPTY BAG 1 BAG IVPB SCH (01:48)
[2020-08-05 06:39] LABS: Basophils % (A) 0 %; Eosinophils # (A) 0.1 k/uL (0-0.7); Eosinophils % (A) 1 %; HCT 32.6 % (34.0-46.0); Lymphocytes # (A) 1.9 k/uL (1.0-4.8); Lymphocytes % (A) 21 %; MCH 28.9 pg (25.0-35.0); MCHC 33.7 g/dL (31.0-37.0); MCV 85.8 fL (80.0-100.0); Mean Platelet Volume 10.2; Monocytes # (A) 0.5 k/uL (0-1.0); Monocytes % (A) 5 %; Neutrophils # (A) 6.3 k/uL (1.3-7.7); Neutrophils % (A) 71 %; Platelet Count 127 k/uL (150-450); WBC 8.9 k/uL (3.8-10.6)
--- NOTE | 2020-08-05 06:42 | P.PN ---
Progress Note - Text Postoperative day 1 status post section under spinal anesthesia, and intrathecal morphine given for postoperative analgesia, patient doing well, there is no anesthesia related complications Patient had no headache, vital signs stable Assessment and plan = postop day 1 status post , doing well there is no anesthesia related complication
[2020-08-05] MEDS: IBUPROFEN 600 MG TAB PO SCH ×3 (06:52→18:51)
--- NOTE | 2020-08-05 08:43 | P.PNOBGPC ---
Subjective - Subjective Principal diagnosis: Postop day 1 status post repeat Interval history: Patient is feeling well this morning. She did well overnight, she is ambulating and voiding without difficulty. She is tolerating a regular diet this morning she denies discomfort and states she is overall feeling well. Breast-feeding is going well. Patient reports: Reports appetite normal, Reports voiding normally, Reports pain well controlled, Reports ambulating normally : doing well, nursing well Objective - Vital Signs Latest vital signs: Vital Signs Temp Pulse Resp BP Pulse Ox 08/05/20 04:00 98.1 F 71 16 134/87 08/05/20 00:00 97.7 F 68 14 134/82 08/04/20 19:28 96.8 F L 66 16 123/76 99 08/04/20 18:58 97.2 F L 58 L 18 126/76 98 08/04/20 18:28 76 17 140/67 98 08/04/20 18:13 71 17 128/66 08/04/20 17:58 74 17 132/61 98 08/04/20 17:43 70 17 115/56 97 08/04/20 17:28 97.1 F L 79 17 110/53 98 08/04/20 12:06 97.4 F L 89 18 137/78 99 Intake and Output 08/04/20 08/05/20 08/05/20 22:59 06:59 14:59 Intake Total 1800 Output Total 200 1200 Balance 1600 -1200 Intake: IV 1800 Output: Urine 200 1200 Uretheral ([place]) 1000 Other: Voiding Method Indwelling Catheter Indwelling Catheter # Voids 1 - Exam Extremities: Present: normal, edema Abdomen: Present: normal appearance, soft Incision: Present: normal, dry, intact Uterus: Present: normal, firm - Labs Labs: Abnormal Lab Results - Last 24 Hours (Table) 08/04/20 08/05/20 Range/Units 12:18 06:01 Hgb 10.9 L 11.0 L (11.4-16.0) gm/dL Hct 33.0 L 32.6 L (34.0-46.0) % Plt Count 127 L (150-450) k/uL Assessment and Plan (1) 37 weeks gestation of Current Visit: Yes Status: Acute Code(s): Z3A.37 - 37 WEEKS GESTATION OF SNOMED Code(s): 87515301 (2) H/O section Current Visit: Yes Status: Acute Code(s): Z98.891 - HISTORY OF UTERINE SCAR FROM PREVIOUS SURGERY SNOMED Code(s): 299386383 (3) Active labor Current Visit: No Status: Acute Code(s): CCA7042 - SNOMED Code(s): 855114036 (4) H/O delivery by vacuum extraction, currently Current Visit: No Status: Acute Code(s): O09.299 - SUPRVSN OF PREG W POOR REPRODCTV OR OBSTET HISTORY, UNSP TRI SNOMED Code(s): 579252521 (5) S/P section Current Visit: No Status: Acute Code(s): Z98.891 - HISTORY OF UTERINE SCAR FROM PREVIOUS SURGERY SNOMED Code(s): 606842092 Plan: Patient is doing well postoperatively, anticipate discharge home tomorrow.
[2020-08-05] MEDS: SIMETHICONE 80 MG CHEWABLE PO PRN ×2 (11:48→19:58)
[2020-08-05] MEDS: PRENATAL VIT-IRON-FOLIC ACID 1 EACH CAP PO SCH (13:48)
[2020-08-06] MEDS: IBUPROFEN 600 MG TAB PO SCH ×3 (01:10→13:08)
[2020-08-06] MEDS ORDERED: ACETAMINOPHEN TAB 500 MG TAB PO PRN (04:09)
[2020-08-06 08:19] VITALS: BP 122/75; PULSE 65; RESP 15; TEMP 97.8
[2020-08-06] MEDS: NITROFURANTOIN MONOHYD/M-CRYST 100 MG CAP PO SCH (08:44)
[2020-08-06] MEDS: SENNOSIDES-DOCUSATE SODIUM 1 EACH TAB PO SCH (08:45)
[2020-08-06] MEDS: SIMETHICONE 80 MG CHEWABLE PO PRN (08:48)
[2020-08-06] MEDS ORDERED: HYDROcodone/APAP 5-325MG 1 EACH TAB PO PRN (09:21)
--- NOTE | 2020-08-06 09:26 | P.DS ---
Providers Date of admission: 08/04/20 11:22 Expected date of discharge: 08/06/20 Attending physician: Chrystal Adams Primary care physician: Stated None - Discharge Diagnosis(es) (1) 37 weeks gestation of Current Visit: Yes Status: Acute (2) H/O section Current Visit: Yes Status: Acute (3) Active labor Current Visit: No Status: Acute (4) H/O delivery by vacuum extraction, currently Current Visit: No Status: Acute (5) S/P section Current Visit: No Status: Acute Hospital Course: This is a 35-year-old that presented to the office at 37 and one sevenths weeks with complaints of regular contractions. Patient had been seen on labor and delivery multiple times with complaints of regular painful contractions. Patient has made some cervical change therefore she was admitted to labor and delivery for repeat section. Patient been receiving routine care with myself. Prior deliveries complicated by delivery at 36 weeks. Patient has a history of her first delivery being of vacuum assist vaginal delivery with a third-degree laceration therefore she elected primary with her second child. Patient has struggled with contractions through this and did receive steroids at 34 weeks. Patient underwent section without difficulty for further details on the please see the operative report. Patient delivered a viable male infant at 1648 on 08/04 weighing 7 lbs. 8 oz. and Apgars of 8 and 9 at one and 5 minutes respectively. Patient's postoperative course has been Located by moderate pain. Patient has a low pain tolerance and Motrin and OxyContin have been used around the clock. Patient is ambulating and voiding without difficulty she is tolerating a regular diet without nausea or vomiting. She is using an abdominal binder. She would like discharge home today if possible. Patient Condition at Discharge: Good Plan - Discharge Summary New Discharge Prescriptions: No Action Pnv No.95/Ferrous Fum/Folic AC [ Multivitamin Tablet] 1 each PO DAILY Omeprazole [PriLOSEC] 10 mg PO DIRECTED PRN PRN Reason: Heartburn Nitrofurantoin Monohyd/M-Cryst [Macrobid] 100 mg PO Q12HR Discharge Medication List Pnv No.95/Ferrous Fum/Folic AC [ Multivitamin Tablet] 1 each PO DAILY 06/03/20 [History] Omeprazole [PriLOSEC] 10 mg PO DIRECTED PRN 07/09/20 [History] Nitrofurantoin Monohyd/M-Cryst [Macrobid] 100 mg PO Q12HR 08/04/20 [History] Follow up Appointment(s)/Referral(s): Chrystal Adams DO [Doctor of Osteopathic Medicine] - 2 Weeks Patient Instructions/Handouts: (DC), (GEN) Activity/Diet/Wound Care/Special Instructions: Encouraged ambulation at home with abdominal binder, [place]/Motrin for the first few days at home for pain control. Patient can expect. Like bleeding for 4-6 weeks after delivery. Patient is to call the office prior to her 2 week postop check should she have any concerns prior to this appointment. Discharge Disposition: HOME SELF-CARE
[2020-08-06] MEDS: PRENATAL VIT-IRON-FOLIC ACID 1 EACH CAP PO SCH (11:03)
== END 2020-08-06 14:14 | disposition home or self-care (01) | DRG 786 ==
LOC: 4FBP 11:22
PROVIDERS: ADMIT Obstetrics & Gynecology Obstetrics; ATTEND Obstetrics & Gynecology Obstetrics
PROC: 10D00Z1 Extraction of Products of Conception, Low, Open Approach (ICD-10-PCS; principal; 2020-08-04 06:00)
DX: O34.211 Maternal care for low transverse scar from previous cesarean delivery (principal); O60.14X0 Preterm labor third trimester with preterm delivery third trimester, not applicable or unspecified; O36.8130 Decreased fetal movements, third trimester, not applicable or unspecified; Z37.0 Single live birth; Z3A.37 37 weeks gestation of pregnancy; O99.824 Streptococcus B carrier state complicating childbirth; Z90.89 Acquired absence of other organs; Z82.0 Family history of epilepsy and other diseases of the nervous system
CPT/HCPCS: 85025; 86850; 86900; 86901

== ENCOUNTER → 2021-05-25 | Outpatient (CLI) | payer BC, OTHER | END | disposition home or self-care (01) | LOC: LABWHC1 09:11 | PROVIDERS: ATTEND Emergency Medicine | DX: Z20.822 Contact with and (suspected) exposure to COVID-19 (principal) | CPT/HCPCS: 87635 ==

== ENCOUNTER → 2021-05-26 | Outpatient (CLI) | payer BC, OTHER | END | disposition home or self-care (01) | LOC: LABWHC1 10:15 | PROVIDERS: ATTEND Emergency Medicine | DX: Z20.822 Contact with and (suspected) exposure to COVID-19 (principal) | CPT/HCPCS: 87635 ==

== ENCOUNTER 2022-11-15 18:53 | Emergency (ER) | payer BC, MEDICAID ==
[2022-11-15 19:13] VITALS: PULSE 70; TEMP 98.5
[2022-11-15] MEDS ORDERED: LIDOCAINE 2%-EPI 1:100,000 20 ML VIAL SQ STA (20:21)
[2022-11-15] MEDS ORDERED: ACETAMINOPHEN TAB 500 MG TAB PO STA (20:36)
[2022-11-15] MEDS ORDERED: LIDOCAINE 1% INJ 10MG/ML (30 ML VIAL-PF) SQ ONE (20:53)
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
[2022-11-15] MEDS ORDERED: BACITRACIN OINT 1 EACH PACKET TOPICAL ONE (21:38)
[2022-11-15 21:56] VITALS: BP 111/75; RESP 20
== END 2022-11-15 21:56 | disposition home or self-care (01) ==
LOC: EC 18:53
DX: S01.111A Laceration without foreign body of right eyelid and periocular area, initial encounter (principal); W50.0XXA Accidental hit or strike by another person, initial encounter
CPT/HCPCS: 99283; 12011; J2001

== ENCOUNTER 2022-11-20 12:54 | Emergency (ER) | payer MEDICAID ==
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
[2022-11-20] MEDS ORDERED: ONDANSETRON ODT 4 MG TAB PO STA (13:21)
[2022-11-20] MEDS ORDERED: ACETAMINOPHEN TAB 325 MG TAB PO STA (13:22)
--- NOTE | 2022-11-20 14:23 | CT ---
EXAMINATION TYPE: CT brain wo con DATE OF EXAM: 11/20/2022 COMPARISON: None INDICATION: headache, dizziness, head injury to forehead DLP: 1055.4 mGycm, Automated exposure control for dose reduction was used. CONTRAST: None CT of the brain is performed utilizing 3 mm thick sections through the posterior fossa and 3 mm thick sections through the remaining calvarium. Study is performed within 24 hours of arrival to the hosp ital. No abnormal hyperdensity is present to suggest an acute intracranial hemorrhage. No mass lesion is evident. No acute infarcts are evident. Ventricles and sulci are appropriate for the patient age. Paranasal sinuses and mastoid air cells within the ufkli-dz-impl are clear. IMPRESSIONS: 1. No acute intracranial process. Follow-up MRI can be performed as clinically indicated.
[2022-11-20 15:01] VITALS: BP 108/54; PULSE 74; RESP 16; TEMP 98.6
== END 2022-11-20 15:00 | disposition home or self-care (01) ==
LOC: EC 12:54
DX: S09.90XA Unspecified injury of head, initial encounter (principal); X58.XXXA Exposure to other specified factors, initial encounter
CPT/HCPCS: 70450; 99284

== ENCOUNTER 2023-07-11 16:26 | Outpatient (CLI) | payer MEDICAID ==
[2023-07-11] MEDS: BETAMET ACET-BETAMETH SOD PHOS 6 MG/ML MDV IM SCH (16:40)
== END 2023-07-11 16:46 ==
LOC: FBPOP 16:26
PROVIDERS: ATTEND Obstetrics & Gynecology
DX: O47.03 False labor before 37 completed weeks of gestation, third trimester (principal); Z29.89 Encounter for other specified prophylactic measures; Z3A.32 32 weeks gestation of pregnancy
CPT/HCPCS: 96372; J0702

== ENCOUNTER 2023-07-12 14:19 | Outpatient (CLI) | payer MEDICAID ==
[2023-07-12] MEDS: BETAMET ACET-BETAMETH SOD PHOS 6 MG/ML MDV IM SCH (14:25)
== END 2023-07-12 14:29 | disposition home or self-care (01) ==
LOC: FBPOP 14:19
PROVIDERS: ATTEND Obstetrics & Gynecology Obstetrics
DX: O47.03 False labor before 37 completed weeks of gestation, third trimester (principal); Z29.89 Encounter for other specified prophylactic measures; Z3A.33 33 weeks gestation of pregnancy
CPT/HCPCS: 96372; J0702

== ENCOUNTER → 2023-07-30 | Outpatient (CLI) | payer MEDICAID ==
[2023-07-30 17:03] VITALS: BP 134/71; PULSE 103; RESP 18; TEMP 96.4
--- NOTE | 2023-09-12 18:15 | P.MSEPDOC ---
Presenting Problems - Arrival Data Date of Arrival on Unit: 07/30/23 Time of Arrival on Unit: 15:22 Mode of Transport: Ambulatory - Complaint OB-Reason for Admission/Chief Complaint: Decreased Movement Comment: pt presented with c/o decreased movement for1.5 hrs and cramping since Sunday. Medical History - Information : 5 Para: 3 Term: 2 : 1 Abortions: Spontaneous or Elective: 1 Number of Living Children: 3 - Gestational Age Gestational Age by AXEL (wks/days): 36 Weeks and 1 Days - History Complications: Prior Review of Systems - Review of Systems Constitutional: No problems Breast: No problems ENT: No problems Cardiovascular: No problems Respiratory: No problems Gastrointestinal: No problems Genitourinary: No problems Musculoskeletal: No problems Neurological: No problems Skin: No problems Vital Signs - Temperature Temperature: 96.4 F Temperature Source: Temporal Artery Scan - Pulse Right Pulse Rate: 103 Pulse Assessment Method: Automatic Cuff - Respirations Respiratory Rate: 18 Oxygen Delivery Method: Room Air O2 Sat by Pulse Oximetry: 97 - Blood Pressure Right Arm Blood Pressure: 134/71 Blood Pressure Mean: 92 Blood Pressure Source: Automatic Cuff Medical Screen Scoring - Cervical Exam Dilation (cm): 1 Membranes: Intact - Uterine Contractions Frequency From (mins): 6 Frequency To (mins): 18 Duration From (seconds): 50 Duration To (seconds): 60 Intensity: Mild Resting: Soft to palpation - Assessment - Baby A Baseline FHR: 135 Heart Rate - NICHD Category: Category I (Normal) NST: Reactive Physician Notification - Physician Notified Physician Notified Date: 07/30/23 Physician Notified Time: 16:23 Physician: Chrystal Adams New Order Received: No (Okay to D/C) - Notification Comment Comment: Dr Adams okay'd pt to be d/c'd to home Maternal Triage Index - Maternal Triage Index Presenting for scheduled procedure w/no complaint: No - Stat/Priority 1 Stat Priority 1: No - Urgent/Priority 2 Urgent Priority 2: Yes Provider Notified: Chrystal Adams Provider Notified Time: 16:23 Criteria Met for Priority 2: c/o decreased movemend, cramping and hx of c/s Disposition - Disposition OB Disposition: Discharge to home Discharge Date: 07/30/23 Discharge Time: 16:29 I agree with the RN Medical Screening Exam: Yes Case reviewed; plan agreed upon as documented in EMR&OBIX.: Yes Diagnosis: FALSE LABOR BEFORE 37 COMPLETED WEEKS OF GEST, THIRD TRI
== END ==
LOC: FBPOP 15:22
PROVIDERS: ATTEND Obstetrics & Gynecology Obstetrics
DX: O47.03 False labor before 37 completed weeks of gestation, third trimester (principal); O36.8131 Decreased fetal movements, third trimester, fetus 1; Z3A.36 36 weeks gestation of pregnancy
CPT/HCPCS: 59025; 99213

== ENCOUNTER 2023-07-31 17:00 | Inpatient (IN) | payer MEDICAID ==
[2023-07-31] MEDS: LACTATED RINGERS 1,000 ML IV SCH (18:45)
[2023-07-31 19:50] LABS: Basophils % (A) 0 %; Eosinophils # (A) 0.1 k/uL (0-0.7); Eosinophils % (A) 1 %; HGB 12.8 gm/dL (11.4-16.0); Lymphocytes # (A) 3.4 k/uL (1.0-4.8); Lymphocytes % (A) 26 %; MCH 29.5 pg (25.0-35.0); MCHC 33.8 g/dL (31.0-37.0); MCV 87.4 fL (80.0-100.0); Mean Platelet Volume 10.6; Monocytes # (A) 0.6 k/uL (0-1.0); Monocytes % (A) 5 %; Neutrophils # (A) 8.4 k/uL (1.3-7.7); Neutrophils % (A) 66 %; Platelet Count 205 k/uL (150-450); Poikilocytosis Slight; RBC 4.35 m/uL (3.80-5.40); RDW 14.2 % (11.5-15.5); WBC 12.8 k/uL (3.8-10.6)
[2023-07-31] MEDS ORDERED: METHYLERGONOVINE 0.2 MG/ML 1 ML AMP IM PRN (20:40)
[2023-07-31] MEDS ORDERED: miSOPROStoL 200 MCG TAB PO PRN (20:40)
[2023-07-31] MEDS ORDERED: OXYTOCIN 10 UNIT/ML 1 ML VIAL IM PRN (20:40)
[2023-07-31] MEDS ORDERED: CARBOPROST TROMETHAMINE 250 MCG/ML 1 ML AMP IM PRN (20:40)
[2023-07-31] MEDS ORDERED: TRANEXAMIC 1,000 MG/100ML-NACL 1,000 MG in EMPTY BAG 1 BAG IV PRN (20:40)
--- NOTE | 2023-07-31 20:44 | P.HPOB ---
History of Present Illness H&P Date: 07/31/23 Chief Complaint: IUP @ 36 weeks PT ctx 38 yo at 36 weeks that presents with complaints of ctx. she states the contraction increased and became more uncomfortable this afternoon after her 4 pm meeting. She denies any VB, and does note good FM. She does request repeat section with bilateral salpingectomy. she has been receiving routine care with myself. On blood work this patient is a blood type of B+, rubella status immune, RPR is nonreactive, hepatitis B surface engine negative, HIV negative, she did undergo maternity 21 testing which was negative, normal gestational diabetes screen. 1 38 weeks VAVD trisomy 18 2. 36 LTCS 7-9 3. 6 week missed Ab 4. 37 week RCS 5 current Review of Systems Constitutional: Denies chills, Denies fatigue, Denies fever Ears, nose, mouth and throat: Denies headache Cardiovascular: Reports leg edema Respiratory: Denies dyspnea Gastrointestinal: Denies constipation, Denies diarrhea, Denies nausea, Denies vomiting Genitourinary: Reports Past Medical History Past Medical History: No Reported History History of Any Multi-Drug Resistant Organisms: None Reported Past Surgical History: Section, Tonsillectomy Past Anesthesia/Blood Transfusion Reactions: No Reported Reaction Smoking Status: Never smoker - Past Family History Father Family Medical History: No Reported History Mother History Unknown: Yes Additional Family Medical History / Comment(s): mom from CJD in Jan Medications and Allergies Home Medications Medication Instructions Recorded Confirmed Type Pnv No.95/Ferrous Fum/Folic AC 1 each PO DAILY 06/03/20 07/30/23 History [ Multivitamin Tablet] Allergies Allergy/AdvReac Type Severity Reaction Status Date / Time No Known Allergies Allergy Verified 07/30/23 15:47 Exam Osteopathic Statement: *. No significant issues noted on an osteopathic structural exam other than those noted in the History and Physical/Consult. Intake and Output 07/31/23 07/31/23 07/31/23 06:59 14:59 22:59 Other: Weight 72.575 kg Targeted physical exam is performed this date General is a well-nourished well- developed female in no acute distress, breathing is nonlabored, heart has a regular rhythm, abdomen is gravid and appropriate for gestational age, on cervical exam she is 2/50/-3 station very similar check after 1 hour. heart tones are noted to be category 1 and she is fuentes every 2 to 4 minutes. Assessment and Plan (1) 36 weeks gestation of Current Visit: No Status: Acute Code(s): Z3A.36 - 36 WEEKS GESTATION OF SNOMED Code(s): 45203917 (2) H/O section Current Visit: No Status: Acute Code(s): Z98.891 - HISTORY OF UTERINE SCAR FROM PREVIOUS SURGERY SNOMED Code(s): 293891878 (3) H/O delivery by vacuum extraction, currently Current Visit: No Status: Acute Code(s): O09.299 - SUPRVSN OF PREG W POOR REPRODCTV OR OBSTET HISTORY, UNSP TRI SNOMED Code(s): 686750313 Plan: 38-year-old 5 para 2-1-1-2 at 36 weeks of that presents for contractions. Patient was monitored over an hour with consistent contraction pattern. Patient states she does have some discomfort with the contractions, no vaginal bleeding is appreciated after the checks. Plan to observe overnight for increased contractions and need to proceed with repeat section and bilateral salpingectomy. IV is begun and labs will be obtained. Will plan to keep patient n.p.o.
[2023-07-31] MEDS: CITRIC ACID-SODIUM CITRATE 15 ML CUP PO ONE (20:54)
[2023-07-31] MEDS ORDERED: PHENYLEPHRINE-0.9% NACL SYG 1,000 MCG/10 ML SYRINGE ONE (21:20)
[2023-07-31] MEDS ORDERED: MORPHINE SULFATE (PF) 0.3 MG/0.3 ML SYR ONE (21:20)
[2023-07-31] MEDS ORDERED: ONDANSETRON 4 MG/2 ML VIAL ONE (21:20)
[2023-07-31] MEDS ORDERED: OXYTOCIN 30 UNITS/500 ML NS BAG IV ONE (21:20)
[2023-07-31] MEDS ORDERED: NALBUPHINE 10 MG/ML (10 ML MDV) ONE (21:20)
[2023-07-31] MEDS ORDERED: METOCLOPRAMIDE 5 MG/ML 2 ML VIAL IVP PRN (22:16)
[2023-07-31] MEDS ORDERED: diphenhydrAMINE 25 MG CAP PO PRN (22:16)
[2023-07-31] MEDS ORDERED: ZOLPIDEM 5 MG TAB PO PRN (22:16)
[2023-07-31] MEDS ORDERED: diphenhydrAMINE 50 MG/ML 1 ML VIAL IVP PRN (22:16)
[2023-07-31] MEDS ORDERED: NALOXONE 0.4 MG/ML 1 ML VIAL IV PRN (22:16)
[2023-07-31] MEDS ORDERED: ONDANSETRON 4 MG/2 ML VIAL IVP PRN (22:16)
[2023-07-31] MEDS ORDERED: diphenhydrAMINE 50 MG CAP PO PRN (22:16)
--- NOTE | 2023-07-31 22:17 | P.OP ---
Date of Procedure: 07/31/23 Preoperative Diagnosis: IUP at 36-2/7 weeks, labor, history of x 2 desires repeat, family status complete Postoperative Diagnosis: Same Procedure(s) Performed: Repeat section Anesthesia: spinal Surgeon: Chrystal Adams Appliance Painter And Refinisher #1: Samina Rockwell Estimated Blood Loss (ml): 436 IV fluids (ml): 700 Urine output (ml): 300 Pathology: other (Bilateral fallopian tubes) Condition: stable Disposition: observation Indications for Procedure: 38-year-old -1-1-2 at 36 weeks that presents with regular painful contractions. Patient was observed with noted cervical change therefore she was taken back for repeat section with bilateral salpingectomy per patient request. Operative Findings: Normal uterus tubes and ovaries were appreciated. Viable male delivered at 2143, weight of 6 pounds 6 ounces, Apgars of 9 and 9 at 1 and 5 minutes respectively. Description of Procedure: Patient was taken back to the operating room where spinal anesthesia was found to be adequate by the anesthesia department. She was prepped and draped in the normal sterile fashion in the dorsal supine position. A Pfannenstiel skin inci marvin was made with a scalpel and carried through to the underlying layer of fascia. The fascia was incised in the midline and extended laterally. The superior aspect of the fascial incision was then grasped with Maura clamps, elevated and the underlying rectus muscle was dissected off sharply. The inferior aspect of the fascial incision was then grasped with Maura clamps, elevated and the underlying rectus muscle was dissected off sharply. Peritoneal incision was then extended superiorly and inferiorly with good visualization of the bladder. The bladder blade was then inserted into the pelvis. A bladder flap was then created using sharp and blunt dissection. Hysterotomy incision was made with a scalpel clear fluid was obtained and the infant was delivered in vertex presentation. The umbilical cord was doubly clamped and cut and the was handed off to waiting RN. Spontaneous cry was noted at . 2 true knots were noted in the umbilical cord. The placenta was delivered manually and the uterus was cleared of all clots and debris. The uterus was exteriorized hysterotomy incision was closed with 0 Vicryl in a running locked fashion. A small defect was appreciated on the left-hand side of the uterine incision therefore a [id number] suture was used to obtain hemostasis and closure. The right fallopian tube was then elevated and the LigaSure was used to transect the mesosalpinx toward the cornual region this fallopian tube was then passed off the pedicle was noted to be hemostatic, this was then repeated on the opposite side, hemostasis was appreciated bilaterally. The hysterotomy incision was inspected once again and hemostasis was noted. The uterus was returned to the abdomen the hysterotomy incision was inspected and hemostasis was appreciated. The rectus muscles were inspected and found to be hemostatic. The fascia was closed with 0 Vicryl in a running fashion from 1 lateral to the midline and the other lateral edge of the midline subcutaneous tissue was irrigated found to be hemostatic and closed with 3-0 Vicryl in a running fashion the skin was closed with 4-0 Vicryl in a subcuticular fashion. All counts were to correct x 2 at the end of the procedure. Patient and tolerated delivery well and resting comfortably.
[2023-07-31] MEDS: OXYTOCIN 30 UNITS/500 ML NS 30 UNIT in SALINE 1 500ML.BAG IV SCH (23:00)
[2023-08-01] MEDS: ACETAMINOPHEN IV (For NPO) 1,000 MG in EMPTY BAG 1 BAG IVPB SCH (00:10)
[2023-08-01] MEDS: ACETAMINOPHEN TAB 500 MG TAB PO SCH (00:36)
[2023-08-01] MEDS: IBUPROFEN 600 MG TAB PO SCH (03:14)
[2023-08-01] MEDS: diphenhydrAMINE 50 MG/ML 1 ML VIAL IVP PRN (03:35)
[2023-08-01] MEDS: IBUPROFEN IV 800 MG in SODIUM CHLORIDE 0.9% 250 ML IV SCH (06:33)
[2023-08-01 06:42] LABS: Basophils % (A) 0 %; Eosinophils # (A) 0.1 k/uL (0-0.7); Eosinophils % (A) 1 %; HCT 37.7 % (34.0-46.0); HGB 12.5 gm/dL (11.4-16.0); Lymphocytes # (A) 3.1 k/uL (1.0-4.8); Lymphocytes % (A) 24 %; MCH 29.4 pg (25.0-35.0); MCHC 33.2 g/dL (31.0-37.0); MCV 88.5 fL (80.0-100.0); Mean Platelet Volume 9.8; Monocytes # (A) 0.6 k/uL (0-1.0); Monocytes % (A) 5 %; Neutrophils # (A) 8.9 k/uL (1.3-7.7); Neutrophils % (A) 69 %; Platelet Count 161 k/uL (150-450); RBC 4.26 m/uL (3.80-5.40); RDW 13.9 % (11.5-15.5)
[2023-08-01] MEDS: SIMETHICONE 80 MG CHEWABLE PO PRN (06:55)
[2023-08-01] MEDS: SENNOSIDES-DOCUSATE SODIUM 1 EACH TAB PO SCH (08:07)
[2023-08-01] MEDS: LACTATED RINGERS 1,000 ML IV SCH (08:08)
--- NOTE | 2023-08-01 08:47 | P.PNOBGPC ---
Subjective - Subjective Principal diagnosis: Postop day 1, repeat section with bilateral salpingectomy Interval history: Patient is doing well, she states her pain is well-controlled. Her lochia is minimal to moderate. She is breast-feeding Awaiting spontaneous void. Patient reports: Reports appetite normal, Reports voiding normally, Reports pain well controlled, Reports ambulating normally [place]: doing well, nursing well Objective - Vital Signs Latest vital signs: Vital Signs Temp Pulse Resp BP Pulse Ox 08/01/23 08:00 97.7 F 67 16 123/77 98 08/01/23 04:00 98.2 F 59 L 18 118/76 98 08/01/23 00:17 97.3 F L 69 16 119/64 97 08/01/23 00:02 60 16 129/69 97 07/31/23 23:47 56 L 18 125/58 97 07/31/23 23:32 65 18 131/71 98 07/31/23 23:17 62 18 125/58 98 07/31/23 23:02 68 16 132/67 97 07/31/23 22:47 73 16 125/63 97 07/31/23 22:32 76 18 119/57 97 07/31/23 22:17 96.7 F L 77 18 118/57 96 07/31/23 19:45 96.9 F L 91 15 100 Intake and Output 07/31/23 08/01/23 08/01/23 22:59 06:59 14:59 Output Total 436 2591 Balance -436 -2591 Output: Urine 2550 Uretheral (Bradshaw) 700 Output, Quantitative 436 41 Blood Loss Other: Voiding Method Indwelling Catheter Indwelling Catheter Weight 72.575 kg - Exam Extremities: Present: normal, edema Abdomen: Present: normal appearance Incision: Present: normal, dry Uterus: Present: normal, firm - Labs Labs: Abnormal Lab Results - Last 24 Hours (Table) 07/31/23 08/01/23 Range/Units 19:00 06:21 WBC 12.8 H 13.0 H (3.8-10.6) k/uL Neutrophils # 8.4 H 8.9 H (1.3-7.7) k/uL Assessment and Plan (1) 36 weeks gestation of Current Visit: No Status: Acute Code(s): Z3A.36 - 36 WEEKS GESTATION OF SNOMED Code(s): 45030608 (2) H/O section Current Visit: No Status: Acute Code(s): Z98.891 - HISTORY OF UTERINE SCAR FROM PREVIOUS SURGERY SNOMED Code(s): 227219938 (3) H/O delivery by vacuum extraction, currently Current Visit: No Status: Acute Code(s): O09.299 - SUPRVSN OF PREG W POOR REPRODCTV OR OBSTET HISTORY, UNSP TRI SNOMED Code(s): 189375400 Plan: Patient is doing well postoperatively, plan to continue routine postoperative care. Awaiting spontaneous void.
[2023-08-01] MEDS: NALBUPHINE 10 MG/ML (10 ML MDV) IV PRN (08:55)
--- NOTE | 2023-08-01 10:29 | P.PN ---
Progress Note - Text Progress Note Date: 08/01/23 Postop day 1 from under spinal anesthesia with intrathecal morphine given for postop pain management. Patient is doing well. Pain is well controlled. On visual analog scale 2/10 Mild itching present No nausea or vomiting reported. No Headache or weakness and numbness in the legs. No complications from spinal anesthesia.
[2023-08-02 09:04] VITALS: BP 123/70; PULSE 71; RESP 20; TEMP 97.9
--- NOTE | 2023-08-02 12:13 | P.DS ---
Providers Date of admission: 07/31/23 18:41 Expected date of discharge: 08/02/23 Attending physician: Chrystal Adams Primary care physician: Chrystal Adams - Discharge Diagnosis(es) (1) 36 weeks gestation of Current Visit: No Status: Acute (2) H/O section Current Visit: No Status: Acute (3) H/O delivery by vacuum extraction, currently Current Visit: No Status: Acute (4) S/P section Current Visit: No Status: Acute Hospital Course: This is a 38-year-old 5 para 3-1-1-4 that presented to [facility] and [facility] on 07/30 with complaints of regular painful contractions. Patient was noted to be 36-2/7 weeks. Patient has a prior history of delivery secondary to contractions. Patient was noted to be breathing through contractions and uncomfortable cervical change was appreciated. Patient was admitted to labor and delivery and taken back for repeat section with requested bilateral salpingectomy. For full details in the procedure please see the dictated operative report. Patient delivered a viable male infant at 2143, weight of 6 pounds 6 ounces, Apgars of 9 and 9 at 1 and 5 minutes respectively. Patient's postoperative course has been uneventful. In this postoperative day #2 she is ambulating and voiding without difficulty. She is tolerating a regular diet without nausea or vomiting. She states her pain is well- controlled. She would like discharge home today. Patient Condition at Discharge: Good Plan - Discharge Summary New Discharge Prescriptions: No Action Pnv No.95/Ferrous Fum/Folic AC [ Multivitamin Tablet] 1 each PO DAILY Discharge Medication List Pnv No.95/Ferrous Fum/Folic AC [ Multivitamin Tablet] 1 each PO DAILY 06/03/20 [History] Follow up Appointment(s)/Referral(s): Chrystal Adams DO [Primary Care Provider] - 2 Weeks Patient Instructions/Handouts: (DC), (GEN) Activity/Diet/Wound Care/Special Instructions: No intercourse, tampons or douching. No heavy lifting greater than a gallon of milk. No driving for two weeks. Call with any fever, shakes or chills, with any pain not alleviated by over the counter meds, or with any quesions or concerns. Discharge Disposition: HOME SELF-CARE
== END 2023-08-02 15:30 | disposition home or self-care (01) | DRG 785 ==
LOC: FBPOP 17:00 → 4FBP 18:41
PROVIDERS: ADMIT Obstetrics & Gynecology Obstetrics; ATTEND Obstetrics & Gynecology Obstetrics
PROC: 10D00Z1 Extraction of Products of Conception, Low, Open Approach (ICD-10-PCS; principal; 2023-07-31 22:00)
PROC: 0UB70ZZ Excision of Bilateral Fallopian Tubes, Open Approach (ICD-10-PCS; principal; 2023-07-31 22:00)
DX: O60.14X0 Preterm labor third trimester with preterm delivery third trimester, not applicable or unspecified (principal); O34.211 Maternal care for low transverse scar from previous cesarean delivery; Z28.310 Unvaccinated for COVID-19; O99.73 Diseases of the skin and subcutaneous tissue complicating the puerperium; L29.9 Pruritus, unspecified; O69.1XX0 Labor and delivery complicated by cord around neck, with compression, not applicable or unspecified; Z30.2 Encounter for sterilization; Z3A.36 36 weeks gestation of pregnancy; Z37.0 Single live birth
CPT/HCPCS: 59025; 85025; 88302; 99213

== ENCOUNTER 2023-10-27 21:46 | Emergency (ER) | payer MEDICAID ==
[2023-10-27 22:19] VITALS: TEMP 98.8
--- NOTE | 2023-10-27 22:45 | ED ---
Abdominal Pain HPI - General Chief Complaint: Abdominal Pain Stated Complaint: abd pain Time Seen by Provider: 10/27/23 22:19 Source: patient, RN notes reviewed Mode of arrival: ambulatory Limitations: no limitations - History of Present Illness Initial Comments: 38-year-old female with no prior abdominal surgeries presenting to the ED with complaints of epigastric pain. Patient reports shortly after having a salad today around 2 PM started to experience some epigastric abdominal pain with associated nausea and vomiting. Also notes some diarrhea, nonbloody as well today. Some chills however no fever. Reports pain is in the epigastric portion and wraps around the right side of her abdomen to her back. Described as constant in nature. No known associated relieving or exacerbating factors. No chest pain or shortness of breath. No other complaints at this time. - Related Data Home Medications Medication Instructions Recorded Confirmed Pnv No.95/Ferrous Fum/Folic AC 1 each PO DAILY 06/03/20 07/30/23 [ Multivitamin Tablet] Previous Rx's Medication Instructions Recorded Ondansetron Odt [Zofran Odt] 4 mg PO Q8HR PRN #10 tab 10/28/23 Allergies Allergy/AdvReac Type Severity Reaction Status Date / Time No Known Allergies Allergy Verified 10/27/23 22:15 Review of Systems ROS Statement: Those systems with pertinent positive or pertinent negative responses have been documented in the HPI. ROS Other: All systems not noted in ROS Statement are negative. Past Medical History Past Medical History: No Reported History History of Any Multi-Drug Resistant Organisms: None Reported Past Surgical History: Section, Tonsillectomy Past Anesthesia/Blood Transfusion Reactions: No Reported Reaction Past Psychological History: No Psychological Hx Reported Smoking Status: Never smoker - Past Family History Father Family Medical History: No Reported History Mother History Unknown: Yes Additional Family Medical History / Comment(s): mom from [place] in Jan General Exam Limitations: no limitations General appearance: alert, in no apparent distress Eye exam: Present: normal appearance Neck exam: Present: normal inspection Respiratory exam: Present: normal lung sounds bilaterally Cardiovascular Exam: Present: regular rate GI/Abdominal exam: Present: soft (Epigastric tenderness to palpation. No rebound guarding or rigidity. Negative Patel sign. Negative Calderon [place] Tejeda sign. Bowel sounds present.) Neurological exam: Present: alert, oriented X3 Skin exam: Present: warm, dry Course Vital Signs 10/27/23 10/27/23 10/28/23 22:07 23:35 00:00 Temperature 98.8 F Pulse Rate 69 62 75 Respiratory 20 18 18 Rate Blood Pressure 119/76 123/67 103/57 O2 Sat by Pulse 98 96 97 Oximetry 10/28/23 10/28/23 10/28/23 01:00 02:00 03:00 Temperature Pulse Rate 76 61 50 L Respiratory 18 18 18 Rate Blood Pressure 121/91 106/55 97/54 O2 Sat by Pulse 97 98 98 Oximetry Medical Decision Making - Medical Decision Making Was pt. sent in by a medical professional or institution (, PA, ELECTRONICS TEST ENGINEER, urgent care, hospital, or senior living...) When possible be specific @ -No Did you speak to anyone other than the patient for history (EMS, parent, family, police, friend...)? What history was obtained from this source @ -No Did you review nursing and triage notes (agree or disagree)? Why? @ -I reviewed and agree with nursing and triage notes Were old charts reviewed (outside hosp., previous admission, EMS record, old EKG, old radiological studies, urgent care reports/EKG's, senior living records)? Report findings @ -No old charts were reviewed Differential Diagnosis (chest pain, altered mental status, abdominal pain women, abdominal pain men, vaginal bleeding, weakness, fever, dyspnea, syncope, headache, dizziness, GI bleed, back pain, seizure, CVA, palpatations, mental health, musculoskeletal)? @ -Differential Abdominal Pain Women: Appendicitis, Cholecystitis, diverticulosis, ischemic bowel, pancreatitis, hepatitis, UTI, gastroenteritis, AAA, incarcerated hernia, bowel obstruction, constipation, inflammatory bowel, hepatitis, peptic ulcer disease, splenic infarction, perforated viscus, vulvitis, ovarian torsion, PID, kidney stone, placenta abruption, this is not meant to be an all-inclusive list EKG interpreted by me (3pts min.). @ -None X-rays interpreted by me (1pt min.). @ -None done CT interpreted by me (1pt min.). @ -CT abdomen pelvis interpreted by me showing small bowel thickening concerning for enteritis. No other acute findings U/S interpreted by me (1pt. min.). @ -Ultrasound gallbladder interpreted me which revealed no evidence of acute finding. What testing was considered but not performed or refused? (CT, X-rays, U/S, labs)? Why? @ -None What meds were considered but not given or refused? Why? @ -None Did you discuss the management of the patient with other professionals (professionals i.e. , PA, ELECTRONICS TEST ENGINEER, lab, RT, psych nurse, social director, fitting room maintenance mechanic, teacher, armoured corps officer, case making machine operator)? Give summary @ -No Was smoking cessation discussed for >3mins.? @ -No Was critical care preformed (if so, how long)? @ -No Were there social determinants of health that impacted care today? How? (Homelessness, low income, unemployed, alcoholism, drug addiction, transportation, low edu. Level, literacy, decrease access to med. care, long-term, rehab)? @ -No Was there de-escalation of care discussed even if they declined (Discuss DNR or withdrawal of care, Hospice)? DNR status @ -No What co-morbidities impacted this encounter? (DM, HTN, Smoking, COPD, CAD, Cancer, CVA, ARF, Chemo, Hep., AIDS, mental health diagnosis, sleep apnea, morbid obesity)? @ -None Was patient admitted / discharged? Hospital course, mention meds given and route, prescriptions, significant lab abnormalities, going to OR and other pertinent info. @ -Discharge 38-year-old female presents to the ED with onset of epigastric abdominal pain with some associated nausea vomiting. Laboratory studies reviewed. Laboratory studies largely unremarkable. Ultrasound reviewed which revealed no evidence of acute finding. CT scan reviewed which does show evidence of enteritis. After analgesia and antiemetics patient reported significant improvement of her symptoms. Patient symptoms likely viral in nature. Discharged home with prescription for Zofran. Advise close follow-up with her PCP. Discussed return precautions with patient who verbalized agreement. Undiagnosed new problem with uncertain prognosis? @ -No Drug Therapy requiring intensive monitoring for toxicity (Heparin, Nitro, Insulin, Cardizem)? @ -No Were any procedures done? @ -No Diagnosis/symptom? @ -Gastroenteritis Acute, or Chronic, or Acute on Chronic? @ -Acute Uncomplicated (without systemic symptoms) or Complicated (systemic symptoms)? @ -Uncomplicated Side effects of treatment? @ -No Exacerbation, Progression, or Severe Exacerbation? @ -No Poses a threat to life or bodily function? How? (Chest pain, [place], [place], pneumonia, PE, COPD, DKA, ARF, appy, cholecystitis, CVA, Diverticulitis, Homicidal, Suicidal, threat to staff... and all critical care pts) @ -No - Lab Data Result diagrams: 10/27/23 22:23 10/27/23 22:23 Lab Results 10/27/23 10/27/23 10/27/23 Range/Units 22:23 22:23 23:38 WBC 11.5 H (3.8-10.6) k/uL RBC 5.30 (3.80-5.40) m/uL Hgb 15.2 (11.4-16.0) gm/dL Hct 46.1 H (34.0-46.0) % MCV 87.0 (80.0-100.0) fL MCH 28.6 (25.0-35.0) pg MCHC 32.9 (31.0-37.0) g/dL RDW 14.4 (11.5-15.5) % Plt Count 315 (150-450) k/uL MPV 7.4 Neutrophils % 81 % Lymphocytes % 14 % Monocytes % 3 % Eosinophils % 1 % Basophils % 0 % Neutrophils # 9.4 H (1.3-7.7) k/uL Lymphocytes # 1.6 (1.0-4.8) k/uL Monocytes # 0.4 (0-1.0) k/uL Eosinophils # 0.1 (0-0.7) k/uL Basophils # 0.0 (0-0.2) k/uL Sodium 139 (137-145) mmol/L Potassium 4.2 (3.5-5.1) mmol/L Chloride 105 (98-107) mmol/L Carbon Dioxide 22 (22-30) mmol/L Anion Gap 12 mmol/L BUN 18 H (7-17) mg/dL Creatinine 0.74 (0.52-1.04) mg/dL Est GFR (CKD-EPI)AfAm >90 (>60 ml/min/1.73 sqM) Est GFR (CKD-EPI)NonAf >90 (>60 ml/min/1.73 sqM) Glucose 103 H (74-99) mg/dL Calcium 9.9 (8.4-10.2) mg/dL Total Bilirubin 0.9 (0.2-1.3) mg/dL AST 28 (14-36) U/L ALT 22 (4-34) U/L Alkaline Phosphatase 70 (38-126) U/L Total Protein 8.1 (6.3-8.2) g/dL Albumin 4.9 (3.5-5.0) g/dL Amylase 68 (30-110) U/L Lipase 114 (23-300) U/L Urine Color Yellow Urine Appearance Clear (Clear) Urine pH 6.0 (5.0-8.0) Ur Specific Osborne 1.034 (1.001-1.035) Urine Protein Trace H (Negative) Urine Glucose (UA) Negative (Negative) Urine Ketones 3+ H (Negative) Urine Blood Negative (Negative) Urine Nitrite Negative (Negative) Urine Bilirubin Negative (Negative) Urine Urobilinogen <2.0 (<2.0) mg/dL Ur Leukocyte Esterase Negative (Negative) Urine HCG, Qual (Not Detectd) 10/27/23 Range/Units 23:38 WBC (3.8-10.6) k/uL RBC (3.80-5.40) m/uL Hgb (11.4-16.0) gm/dL Hct (34.0-46.0) % MCV (80.0-100.0) fL MCH (25.0-35.0) pg MCHC (31.0-37.0) g/dL RDW (11.5-15.5) % Plt Count (150-450) k/uL MPV Neutrophils % % Lymphocytes % % Monocytes % % Eosinophils % % Basophils % % Neutrophils # (1.3-7.7) k/uL Lymphocytes # (1.0-4.8) k/uL Monocytes # (0-1.0) k/uL Eosinophils # (0-0.7) k/uL Basophils # (0-0.2) k/uL Sodium (137-145) mmol/L Potassium (3.5-5.1) mmol/L Chloride (98-107) mmol/L Carbon Dioxide (22-30) mmol/L Anion Gap mmol/L BUN (7-17) mg/dL Creatinine (0.52-1.04) mg/dL Est GFR (CKD-EPI)AfAm (>60 ml/min/1.73 sqM) Est GFR (CKD-EPI)NonAf (>60 ml/min/1.73 sqM) Glucose (74-99) mg/dL Calcium (8.4-10.2) mg/dL Total Bilirubin (0.2-1.3) mg/dL AST (14-36) U/L ALT (4-34) U/L Alkaline Phosphatase (38-126) U/L Total Protein (6.3-8.2) g/dL Albumin (3.5-5.0) g/dL Amylase (30-110) U/L Lipase (23-300) U/L Urine Color Urine Appearance (Clear) Urine pH (5.0-8.0) Ur Specific Osborne (1.001-1.035) Urine Protein (Negative) Urine Glucose (UA) (Negative) Urine Ketones (Negative) Urine Blood (Negative) Urine Nitrite (Negative) Urine Bilirubin (Negative) Urine Urobilinogen (<2.0) mg/dL Ur Leukocyte Esterase (Negative) Urine HCG, Qual Not Detected (Not Detectd) Disposition Clinical Impression: Gastroenteritis Disposition: HOME SELF-CARE Condition: Good Instructions (If sedation given, give patient instructions): Gastroenteritis (ED) Prescriptions: Ondansetron Odt [Zofran Odt] 4 mg PO Q8HR PRN #10 tab PRN Reason: Nausea Is patient prescribed a controlled substance at d/c from ED?: No Referrals: Kassandra Nguyen MD [Primary Care Provider] - 1-2 days Time of Disposition: 06:09
[2023-10-27 23:24] LABS: Basophils % (A) 0 %; Eosinophils # (A) 0.1 k/uL (0-0.7); Eosinophils % (A) 1 %; HCT 46.1 % (34.0-46.0); HGB 15.2 gm/dL (11.4-16.0); Lymphocytes # (A) 1.6 k/uL (1.0-4.8); Lymphocytes % (A) 14 %; MCH 28.6 pg (25.0-35.0); MCHC 32.9 g/dL (31.0-37.0); Mean Platelet Volume 7.4; Monocytes # (A) 0.4 k/uL (0-1.0); Monocytes % (A) 3 %; Neutrophils # (A) 9.4 k/uL (1.3-7.7); Neutrophils % (A) 81 %; Platelet Count 315 k/uL (150-450); RDW 14.4 % (11.5-15.5); WBC 11.5 k/uL (3.8-10.6)
[2023-10-27 23:26] LABS: ALT 22 U/L (4-34); AST 28 U/L (14-36); African American GFR (CKD) >90 (>60 ml/min/1.73 sqM); Albumin 4.9 g/dL (3.5-5.0); Alkaline Phosphatase 70 U/L (38-126); Amylase 68 U/L (30-110); Anion Gap 12 mmol/L; Blood Urea Nitrogen 18 mg/dL (7-17); Calcium 9.9 mg/dL (8.4-10.2); Carbon Dioxide 22 mmol/L (22-30); Chloride 105 mmol/L (98-107); Glucose 103 mg/dL (74-99); Lipase 114 U/L (23-300); Non-African American GFR(CKD) >90 (>60 ml/min/1.73 sqM); Potassium 4.2 mmol/L (3.5-5.1); Sodium 139 mmol/L (137-145); Total Bilirubin 0.9 mg/dL (0.2-1.3); Total Protein 8.1 g/dL (6.3-8.2)
[2023-10-27] MEDS: ONDANSETRON 4 MG/2 ML VIAL IVP STA (23:34)
[2023-10-27] MEDS: SODIUM CHLORIDE 0.9% 1,000 ML IV STA (23:34)
[2023-10-27] MEDS: KETOROLAC 15 MG/ML 1 ML VIAL IVP STA (23:37)
[2023-10-28 00:27] LABS: Appearance,Urine Clear (Clear); Bilirubin,Urine Negative (Negative); Blood,Urine Negative (Negative); Color,Urine Yellow; Glucose,Urine (UA) Negative (Negative); Ketones,Urine 3+ (Negative); Leukocyte Esterase,Urine Negative (Negative); Nitrite,Urine Negative (Negative); Protein,Urine Trace (Negative); Specific Gravity,Urine 1.034 (1.001-1.035); Urobilinogen,Urine <2.0 mg/dL (<2.0)
[2023-10-28 01:04] VITALS: RESP 18
--- NOTE | 2023-10-28 02:56 | CT ---
EXAM: CT Abdomen and Pelvis With Intravenous Contrast CLINICAL HISTORY: ITS.REASON CT Reason: epigastric abdominal pain TECHNIQUE: Axial computed tomography images of the abdomen and pelvis with intravenous contrast. CTDI is 13.4 mGy and DLP is 593.7 mGy-cm. This CT exam was performed using one or more of the following dose reduction techniques: automated exposure control, adjustment of the mA and/or kV according to patient size, and/or use of iterative reconstruction technique. COMPARISON: No relevant prior studies available. FINDINGS: Lung bases: Unremarkable. No mass. No consolidation. ABDOMEN: Liver: Hepatic steatosis. Gallbladder and bile ducts: Unremarkable. No calcified stones. No ductal dilation. Pancreas: Unremarkable. No mass. No ductal dilation. Spleen: Unremarkable. No splenomegaly. Adrenals: Unremarkable. No mass. Kidneys and ureters: Unremarkable. No solid mass. No hydronephrosis. Stomach and bowel: Wall thickening of small bowel, concerning for mild enteritis. No obstruction. PELVIS: Appendix: No findings to suggest acute appendicitis. Bladder: Unremarkable. No mass. Reproductive: Unremarkable as visualized. ABDOMEN and PELVIS: Intraperitoneal space: Unremarkable. No free air. No significant fluid collection. Bones/joints: No acute fracture. No dislocation. Soft tissues: Unremarkable. Vasculature: Unremarkable. No abdominal aortic aneurysm. Lymph nodes: Unremarkable. No enlarged lymph nodes. IMPRESSION: Wall thickening of small bowel, concerning for mild enteritis.
[2023-10-28] MEDS: ACETAMINOPHEN TAB 500 MG TAB PO STA (04:05)
[2023-10-28] MEDS: HYDROmorphone 0.5 MG/0.5 ML SYRINGE IM STA (04:06)
--- NOTE | 2023-10-28 04:37 | US ---
EXAM: US Abdomen Limited, Gallbladder CLINICAL HISTORY: ITS.REASON US Reason: epigastric/ruq pain TECHNIQUE: Real-time ultrasound of the right upper quadrant with image documentation. COMPARISON: No relevant prior studies available. FINDINGS: Liver: The liver measures 15.2 cm in length. Gallbladder: Gallbladder wall thickness measures 2 mm. No gallstones. Common bile duct: The common duct measures 2 mm in diameter. No stones. No dilation. Pancreas: Unremarkable as visualized. Right kidney: Unremarkable. No stones. No hydronephrosis. The right kidney measures 9.7 cm in length. IMPRESSION: No acute findings in the right upper quadrant.
[2023-10-28] MEDS: ONDANSETRON 4 MG ODT STARTER PACK 2 TAB BTL PO STA (07:27)
[2023-10-28 07:46] VITALS: BP 92/58; PULSE 82
== END 2023-10-28 07:30 | disposition home or self-care (01) ==
LOC: EC 21:46
DX: K52.9 Noninfective gastroenteritis and colitis, unspecified (principal)
CPT/HCPCS: 99284; 96374; 96375; 96372; 96361; 36415; 80053; 82150; 83690; 85025; 81003; 81025; 76705; 74177; J2405; J1885; S0119; J1170; Q9967

== ENCOUNTER 2024-11-12 11:09 | Emergency (ER) | payer MEDICAID ==
--- NOTE | 2024-11-12 12:10 | ED ---
Skin/Abscess/FB HPI - General Chief complaint: Skin/Abscess/Foreign Body Stated complaint: immunization Time Seen by Provider: 11/12/24 11:28 Source: patient, RN notes reviewed Mode of arrival: ambulatory Limitations: no limitations - History of Present Illness Initial comments: 39-year-old female presenting to emergency department with concerns for pote ntial of poison maame. Patient states that she was in her garden on Sunday believes that she may have gotten in contact with poison maame as she has been having blisters of her upper arm but have been breaking open and spreading to other parts of her body. States that the areas are extremely pruritic. She denies difficulty breathing, tongue or lip swelling, fevers or chills. She states that she has severe reactions to poison maame and has required injections of steroids and a oral course of steroids to help combat the symptoms. - Related Data Home Medications Medication Instructions Recorded Confirmed Pnv No.95/Ferrous Fum/Folic AC 1 each PO DAILY 06/03/20 07/30/23 [ Multivitamin Tablet] Previous Rx's Medication Instructions Recorded Ondansetron Odt [Zofran Odt] 4 mg PO Q8HR PRN #10 tab 10/28/23 Hydrocortisone Cream 1 applic TOPICAL TID #28 gm 11/12/24 [Hydrocortisone 2.5% Cream] predniSONE 50 mg PO DAILY #5 tab 11/12/24 Allergies Allergy/AdvReac Type Severity Reaction Status Date / Time No Known Allergies Allergy Verified 11/12/24 11:12 Review of Systems ROS Statement: Those systems with pertinent positive or pertinent negative responses have been documented in the HPI. ROS Other: All systems not noted in ROS Statement are negative. Past Medical History Past Medical History: No Reported History History of Any Multi-Drug Resistant Organisms: None Reported Past Surgical History: Section, Tonsillectomy Past Anesthesia/Blood Transfusion Reactions: No Reported Reaction Past Psychological History: No Psychological Hx Reported Smoking Status: Never smoker - Past Family History Father Family Medical History: No Reported History Mother History Unknown: Yes Additional Family Medical History / Comment(s): mom from [facility] in Jan General Exam Limitations: no limitations General appearance: alert, in no apparent distress Neck exam: Present: normal inspection. Absent: tenderness, meningismus, lymphadenopathy Respiratory exam: Present: normal lung sounds bilaterally. Absent: respiratory distress, wheezes, rales, rhonchi, stridor Cardiovascular Exam: Present: regular rate, normal rhythm, normal heart sounds. Absent: systolic murmur, diastolic murmur, rubs, gallop, clicks GI/Abdominal exam: Present: soft, normal bowel sounds. Absent: distended, tenderness, guarding, rebound, rigid Extremities exam: Present: normal inspection, full ROM, normal capillary refill. Absent: tenderness, pedal edema, joint swelling, calf tenderness Expanded Type of lesion: Present: rash (Pruritic, erythematous, blistering/weeping rash) Course Vital Signs 11/12/24 11/12/24 11:10 12:18 Temperature 97.6 F 97.9 F Pulse Rate 62 64 Respiratory 17 20 Rate Blood Pressure 120/79 111/73 O2 Sat by Pulse 98 97 Oximetry Medical Decision Making - Medical Decision Making Was pt. sent in by a medical professional or institution (, PA, CENTRAL COMMUNICATIONS SPECIALIST, urgent care, hospital, or senior living...) When possible be specific @ -No Did you speak to anyone other than the patient for history (EMS, parent, family, police, friend...)? What history was obtained from this source @ -No Did you review nursing and triage notes (agree or disagree)? Why? @ -I reviewed and agree with nursing and triage notes Were old charts reviewed (outside hosp., previous admission, EMS record, old EKG, old radiological studies, urgent care reports/EKG's, senior living records)? Report findings @ -No old charts were reviewed Differential Diagnosis (chest pain, altered mental status, abdominal pain women, abdominal pain men, vaginal bleeding, weakness, fever, dyspnea, syncope, headache, dizziness, GI bleed, back pain, seizure, CVA, palpatations, mental health, musculoskeletal)? @ -Contact dermatitis, anaphylaxis, allergic dermatitis, this list is not all inclusive EKG interpreted by me (3pts min.). @ -none X-rays interpreted by me (1pt min.). @ -None done CT interpreted by me (1pt min.). @ -None done U/S interpreted by me (1pt. min.). @ -None done What testing was considered but not performed or refused? (CT, X-rays, U/S, labs)? Why? @ -None What meds were considered but not given or refused? Why? @ -None Did you discuss the management of the patient with other professionals (tico knutson i.e. , PA, CENTRAL COMMUNICATIONS SPECIALIST, lab, RT, psych nurse, protective services social worker, radioactive waste disposal dispatcher, teacher, administrative hearing officer, case technician)? Give summary @ -No Was smoking cessation discussed for >3mins.? @ -No Was critical care preformed (if so, how long)? @ -No Were there social determinants of health that impacted care today? How? (Homelessness, low income, unemployed, alcoholism, drug addiction, transportation, low edu. Level, literacy, decrease access to med. care, custodial, rehab)? @ -No Was there de-escalation of care discussed even if they declined (Discuss DNR or withdrawal of care, Hospice)? DNR status @ -No What co-morbidities impacted this encounter? (DM, HTN, Smoking, COPD, CAD, Cancer, CVA, ARF, Chemo, Hep., AIDS, mental health diagnosis, sleep apnea, morbid obesity)? @ -None Was patient admitted / discharged? Hospital course, mention meds given and route, prescriptions, significant lab abnormalities, going to OR and other pertinent info. @ -Discharge. 39 open presents emergency room with complaints of a rash. There is a noted blistering of the arm consistent with poison maame contact. Patient is provided with IM injection of Solu-Medrol and outpatient description for topical corticosteroids and oral prednisone. Patient stable for discharge. Case discussed with attending Dr. Faith Undiagnosed new problem with uncertain prognosis? @ -No Drug Therapy requiring intensive monitoring for toxicity (Heparin, Nitro, Insulin, Cardizem)? @ -No Were any procedures done? @ -No Diagnosis/symptom? @ -contact dermatitis Acute, or Chronic, or Acute on Chronic? @ -acute Uncomplicated (without systemic symptoms) or Complicated (systemic symptoms)? @ -uncomplicated Side effects of treatment? @ -No Exacerbation, Progression, or Severe Exacerbation? @ -No Poses a threat to life or bodily function? How? (Chest pain, [place], [place], pneumonia, PE, COPD, DKA, ARF, appy, cholecystitis, CVA, Diverticulitis, Homicidal, Suicidal, threat to staff... and all critical care pts) @ -No Disposition Clinical Impression: Contact dermatitis Disposition: HOME SELF-CARE Condition: Good Instructions (If sedation given, give patient instructions): Poison Maame (ED) Additional Instructions: Please return to the emergency department for any new or worsening symptoms. Prescriptions: Hydrocortisone Cream [Hydrocortisone 2.5% Cream] 1 applic TOPICAL TID #28 gm predniSONE 50 mg PO DAILY #5 tab Is patient prescribed a controlled substance at d/c from ED?: No Referrals: Anatoliy Silva DO [Primary Care Provider] - 1-2 days Time of Disposition: 12:09
[2024-11-12] MEDS: methylPREDNISolone SOD SUCCI 125 MG/2 ML VIAL IM ONE (12:14)
[2024-11-12 12:20] VITALS: BP 111/73; PULSE 64; RESP 20; TEMP 97.9
== END 2024-11-12 13:02 | disposition home or self-care (01) ==
LOC: EC 11:09
DX: L25.9 Unspecified contact dermatitis, unspecified cause (principal)
CPT/HCPCS: 99282; 96372; J2919